=== PATIENT | male | born 1950 | race Caucasian/White ===

== ENCOUNTER 2020-12-24 11:21 | Inpatient (IN) | payer MEDICARE, OTHER ==
[2020-12-24 16:07] VITALS: BP 92/56
--- NOTE | 2020-12-24 16:15 | NUR ---
Received pt from [facility] via [facility]. Upon arriving on the floor, pt was unarousable to both verbal and painful stimuli. Blood pressure 71/44, O2 saturation 93% on 2 L NC, SR on monitor, rate of 81, temp 98.3. Rapid response called, BOARD LINING MACHINE OPERATOR Violetta Dc came, pt started on NS bolus and Narcan 0.4 mg IV push given.
--- NOTE | 2020-12-24 16:45 | NUR ---
ARU admission process unable to be completed due to patient's condition. Pt to be transfered to telemetry unit pre HABITAT BIOLOGIST Violetta Dc.
--- NOTE | 2020-12-24 16:45 | NUR ---
Pt awakened but subsequently back to deep sleep. BP went up to 96/51, heart rate 86. BURN OUT SCARFING OPERATOR Violetta Dc on unit and aware. Pt to be transferred to telemetry unit for higher level of care.
[2020-12-24] MEDS ORDERED: NALOXONE HCL 0.4 MG/ML AMPUL IV STA (16:49)
[2020-12-24] MEDS ORDERED: IV NS 1000 ML 1,000 ML IV ONE (17:00)
[2020-12-25] MEDS ORDERED: ACET-2154 PO (09:12)
[2020-12-25] MEDS ORDERED: LISI10TA29 PO (09:15)
[2020-12-25] MEDS ORDERED: MAG30ORA PO (09:15)
[2020-12-25] MEDS ORDERED: ATOR20TA PO (09:15)
[2020-12-25] MEDS ORDERED: ENOX40DI SQ (09:15)
[2020-12-25] MEDS ORDERED: DOCU-141 PO (09:15)
[2020-12-25] MEDS ORDERED: MAGN400O6 PO (09:20)
[2020-12-25] MEDS ORDERED: ONDA4TAB5 PO (09:22)
[2020-12-25] MEDS ORDERED: METF-440 PO (09:22)
[2020-12-25] MEDS ORDERED: TAMS-3 PO (09:23)
[2020-12-25] MEDS ORDERED: PANT40TA2 PO (09:23)
[2020-12-25] MEDS ORDERED: GLIP5TAB13 PO (09:24)
== END 2020-12-24 17:30 | disposition short-term general hospital (02) | DRG 949 ==
PROVIDERS: ADMIT Nurse Practitioner Acute Care; ATTEND Physical Medicine & Rehabilitation Pain Medicine
DX: T84.021D Dislocation of internal left hip prosthesis, subsequent encounter (principal); J96.01 Acute respiratory failure with hypoxia; E11.9 Type 2 diabetes mellitus without complications; E78.5 Hyperlipidemia, unspecified; G89.4 Chronic pain syndrome; F17.210 Nicotine dependence, cigarettes, uncomplicated; J44.9 Chronic obstructive pulmonary disease, unspecified; I10 Essential (primary) hypertension; M85.80 Other specified disorders of bone density and structure, unspecified site; N40.0 Benign prostatic hyperplasia without lower urinary tract symptoms; Z96.643 Presence of artificial hip joint, bilateral; Z98.1 Arthrodesis status
CPT/HCPCS: J2310; J7030

== ENCOUNTER 2020-12-24 17:46 | Inpatient (IN) | payer MEDICARE, OTHER ==
[~2020-12-24] VITALS: Ht 177.8 cm; Wt 85.7 kg
--- NOTE | 2020-12-24 17:30 | NUR ---
received patient in bed, hob elevated. hard to arouse. on oxygen with simple mask at 5lpm. breathing is even and non labored. no sob noted. patient came from [facility] and admitted to [facility] for rehab. however, patient noted with low blood pressure upon admission and hard to arouse, in deep sleep. electronic operator blank villatoro came and saw pt, ordered to transfer to telemetry, noted and carried out.
[2020-12-24] MEDS ORDERED: ACETAMINOPHEN 325 MG TABLET PO PRN ×2 (18:00→18:45)
[2020-12-24] MEDS ORDERED: MAGNESIUM HYDROXIDE 30 ML LIQUID UDC PO PRN ×2 (18:00→18:45)
[2020-12-24] MEDS ORDERED: ENOXAPARIN SODIUM 40 MG/0.4 ML DISP.SYRIN SQ SCH ×2 (18:00→21:00)
[2020-12-24] MEDS ORDERED: OXYCODONE HCL 5 MG TABLET PO PRN (18:00)
[2020-12-24] MEDS ORDERED: Z GUARD REMEDY PASTE 57 GM TUBE TOP PRN (18:00)
[2020-12-24] MEDS ORDERED: ONDANSETRON 4 MG/2 ML VIAL IV PRN ×2 (18:00→18:45)
[2020-12-24] MEDS ORDERED: IV NS 1000 ML 1,000 ML IV PRN (18:00)
[2020-12-24] MEDS ORDERED: NALOXONE HCL 0.4 MG/ML AMPUL IV PRN ×2 (18:00→18:45)
--- NOTE | 2020-12-24 18:15 | NUR ---
pt hard to arouse again, BP 82/49, 95% sat on 2l/nc, informed TREATING PLANT PUMPER Violetta Dc- Narcan 4mg ivp given as ordered PRN, more awake after 5 minutes, BP 102/55 HR-80 sat at 96% , follows commands and knows his full name, and birthday but not birthdate, will continue to monitor
[2020-12-24] MEDS ORDERED: DEXTROSE 50% 50 ML DISP.SYRIN IV PRN ×3 (18:30→18:45)
[2020-12-24] MEDS ORDERED: HYDROCODONE/APAP 10-325 MG TABLET PO PRN (18:45)
[2020-12-24] MEDS ORDERED: MAG HYDROX/AL HYDROX/SIMETH 30 ML LIQUID UDC PO PRN (18:45)
[2020-12-24] MEDS ORDERED: MORPHINE SULFATE 4 MG/1 ML DISP.SYRIN IV PRN (18:45)
[2020-12-24] MEDS ORDERED: CYCLOBENZAPRINE HCL 10 MG TABLET PO PRN (18:45)
[2020-12-24] MEDS ORDERED: INSULIN REGULAR, HUMAN 300 UNITS/3 ML VIAL SQ PRN (18:45)
[2020-12-24] MEDS ORDERED: INSULIN REGULAR, HUMAN 300 UNIT/3 ML VIAL SQ PRN (18:45)
--- NOTE | 2020-12-24 18:55 | NUR ---
arousable, moves upper extremities when told to, states not hungry, BP 100/48 ID [id number] sat 97% at 2l/nc,, will continue to monitor
--- NOTE | 2020-12-24 19:15 | NUR ---
patient easy to arouse, alert and responsive. no sob noted. body check done and wound consult ordered. however, patient refused left hip dressing to be touched, saying it hurts too much. patient kept comfortable.call light within reach. will continue to monitor and endorse accordingly.
[2020-12-24 20:00] VITALS: BP 101/59
--- NOTE | 2020-12-24 20:00 | NUR ---
Received pt lying in bed, sleeping and very drowsy but arouse to verbal and tactile stimuli. Falls back to sleep right after arousal. In no acute distress. No signs or symptoms of pain or SOB. On O2 at 3LPM via NC in place. O2 sat at 96%. NSR on tele at 90/min.IV site on right hand intact and patent. Abductor pillow between legs. Safety measure initiated and call small within reach. Continue to monitor.
[2020-12-24] MEDS ORDERED: Z GUARD REMEDY PASTE 57 GM TUBE TOP SCH (21:00)
[2020-12-24] MEDS ORDERED: BLOOD SUGAR DIAGNOSTIC 1 EACH STRIP VI SCH ×2 (21:00)
[2020-12-24] MEDS ORDERED: ATORVASTATIN 20 MG TABLET PO SCH (21:00)
[2020-12-24] MEDS ORDERED: TRAZODONE 100 MG TABLET PO SCH (21:00)
[2020-12-24] MEDS ORDERED: DOCUSATE SODIUM 100 MG CAPSULE PO SCH (21:00)
[2020-12-24] MEDS ORDERED: TAMSULOSIN HCL 0.4 MG CAP.SR.24H PO SCH (21:00)
[2020-12-24] MEDS: IV NS 1000 ML 1,000 ML IV PRN (21:02)
[2020-12-24] MEDS ORDERED: OXYCODONE HCL 40 MG TAB.SR.12H PO SCH (22:00)
[2020-12-25] VITALS: BP 106/67
[2020-12-25] MEDS ORDERED: BLOOD SUGAR DIAGNOSTIC 1 EACH STRIP VI SCH
[2020-12-25] MEDS: BLOOD SUGAR DIAGNOSTIC 1 EACH STRIP VI SCH ×2 (00:17→05:32)
[2020-12-25] MEDS: INSULIN REGULAR, HUMAN 300 UNIT/3 ML VIAL SQ PRN ×2 (00:19→05:33)
[2020-12-25 00:38] VITALS: BP 106/67
[2020-12-25] MEDS: IV NS 1000 ML 1,000 ML IV PRN (04:36)
[2020-12-25 04:47] VITALS: BP 107/66
--- NOTE | 2020-12-25 06:17 | NUR ---
patient more awake and alert now. AAOx4. In no acute distress. Tylenol 650mg PO given x1 for complain of pain and effective. On O2 at 3LPM via NC in place. O2 sat at 96%. NSR on tele at 81/min. IV site on right hand intact and patent. IVF infusing. Abductor pillow between legs. Needs attended to and met. Safety measure maintained and call small within reach.
[2020-12-25] MEDS ORDERED: PANTOPRAZOLE SODIUM 40 MG TABLET.DR PO SCH ×2 (07:00)
[2020-12-25] MEDS ORDERED: glipiZIDE 5 MG TABLET PO SCH (07:30)
[2020-12-25] MEDS ORDERED: METFORMIN HCL 500 MG TABLET PO SCH (08:00)
[2020-12-25] MEDS ORDERED: ALPRAZOLAM 0.5 MG TABLET PO SCH (09:00)
[2020-12-25] MEDS ORDERED: LISINOPRIL 10 MG TABLET PO SCH (09:00)
[2020-12-25] MEDS ORDERED: ACET-2154 PO (09:12)
[2020-12-25] MEDS ORDERED: ATOR20TA PO (09:15)
[2020-12-25] MEDS ORDERED: LISI10TA29 PO (09:15)
[2020-12-25] MEDS ORDERED: ENOX40DI SQ (09:15)
[2020-12-25] MEDS ORDERED: MAG30ORA PO (09:15)
[2020-12-25] MEDS ORDERED: DOCU-141 PO (09:15)
[2020-12-25] MEDS ORDERED: MAGN400O6 PO (09:20)
[2020-12-25] MEDS ORDERED: METF-440 PO (09:22)
[2020-12-25] MEDS ORDERED: ONDA4TAB5 PO (09:22)
[2020-12-25] MEDS ORDERED: TAMS-3 PO (09:23)
[2020-12-25] MEDS ORDERED: PANT40TA2 PO (09:23)
[2020-12-25] MEDS ORDERED: GLIP5TAB13 PO (09:24)
[2020-12-26 07:13] LABS: BASOPHILS % (AUTO) 0.8 % (0.0-2.0); EOSINOPHILS # (AUTO) 0.2 K/uL (0.0-0.7); EOSINOPHILS % (AUTO) 3.3 % (0.0-7.0); HEMATOCRIT 35.1 % (36.7-47.1); HEMOGLOBIN 12.6 g/dL (12.5-16.3); LYMPHOCYTES # (AUTO) 1.6 K/uL (20.0-40.0); LYMPHOCYTES % (AUTO) 23.9 % (20.5-51.5); MEAN CORPUSCULAR HEMOGLOBIN 33.3 uug (23.8-33.4); MEAN CORPUSCULAR HGB CONC 36 g/dL (32.5-36.3); MEAN CORPUSCULAR VOLUME 92.5 fL (73.0-96.2); MONOCYTES # (AUTO) 0.4 K/uL (2.0-10.0); MONOCYTES % (AUTO) 6.4 % (0.0-11.0); NEUTROPHILS # (AUTO) 4.3 K/uL (1.8-8.9); NEUTROPHILS % (AUTO) 65.6 % (38.5-71.5); PLATELET COUNT (AUTO) 123 K/uL (152-348); RED BLOOD CELL COUNT(AUTO) 3.79 MIL/uL (4.06-5.63); WHITE BLOOD COUNT (AUTO) 6.5 K/uL (3.6-10.2)
[2020-12-26 07:22] LABS: MAGNESIUM 1.8 mg/dL (1.8-2.4); PHOSPHOROUS 3.1 mg/dL (2.5-4.9)
[2020-12-26 07:44] LABS: THYROID STIMULATING HORMONE 0.765 mIU/mL (0.358-3.740)
== END 2020-12-25 08:00 | DRG 189 ==
LOC: TELE3 17:46 → TELE-TD3 19:28 → UNDODISIN 12-25 08:08
PROVIDERS: ADMIT Registered Nurse; ATTEND Registered Nurse
DX: J96.01 Acute respiratory failure with hypoxia (principal); I95.2 Hypotension due to drugs; T40.605A Adverse effect of unspecified narcotics, initial encounter; Y92.89 Other specified places as the place of occurrence of the external cause; E11.9 Type 2 diabetes mellitus without complications; E78.5 Hyperlipidemia, unspecified; G89.4 Chronic pain syndrome; I10 Essential (primary) hypertension; J44.9 Chronic obstructive pulmonary disease, unspecified; T84.021D Dislocation of internal left hip prosthesis, subsequent encounter; N40.0 Benign prostatic hyperplasia without lower urinary tract symptoms; R53.1 Weakness
CPT/HCPCS: 36415; 83735; 84100; 84443; 85025; G0378; J1650; J1815; J2310; J7030

== ENCOUNTER 2020-12-25 08:15 | Inpatient (IN) | payer MEDICARE, OTHER ==
[~2020-12-25] VITALS: Ht 177.8 cm; Wt 81.6 kg
[2020-12-25 08:22] VITALS: BP 123/69
[2020-12-25] MEDS ORDERED: ACET-2154 PO (09:12)
[2020-12-25] MEDS ORDERED: DOCU-141 PO (09:15)
[2020-12-25] MEDS ORDERED: MAG30ORA PO (09:15)
[2020-12-25] MEDS ORDERED: ATOR20TA PO (09:15)
[2020-12-25] MEDS ORDERED: LISI10TA29 PO (09:15)
[2020-12-25] MEDS ORDERED: ENOX40DI SQ (09:15)
[2020-12-25] MEDS ORDERED: MAGN400O6 PO (09:20)
[2020-12-25] MEDS ORDERED: METF-440 PO (09:22)
[2020-12-25] MEDS ORDERED: ONDA4TAB5 PO (09:22)
[2020-12-25] MEDS ORDERED: PANT40TA2 PO (09:23)
[2020-12-25] MEDS ORDERED: TAMS-3 PO (09:23)
[2020-12-25] MEDS ORDERED: GLIP5TAB13 PO (09:24)
--- NOTE | 2020-12-25 10:00 | NUR ---
patient is alert, oriented x3, with some forgetfulness, no sob, resp even nonlabored, skin warm and dry to touch, left hip ORIF, incision site is clean and dry, renetta are intact, noted with some blanchable redness to sacral area, no distress noted.
--- NOTE | 2020-12-25 11:30 | NUR ---
Violetta GRIMM would like to transfer the patient back to [facility] for more monitoring
--- NOTE | 2020-12-25 12:14 | NUR ---
discharge to [facility] cancelled per SIRISHA Shipley, patient is stable and can continue ARU
[2020-12-25] MEDS ORDERED: ACETAMINOPHEN 325 MG TABLET PO PRN (12:15)
[2020-12-25] MEDS ORDERED: MAG HYDROX/AL HYDROX/SIMETH 30 ML LIQUID UDC PO PRN (12:15)
[2020-12-25] MEDS ORDERED: ONDANSETRON HCL 4 MG TABLET PO SCH (12:15)
[2020-12-25] MEDS ORDERED: MAGNESIUM HYDROXIDE 30 ML LIQUID UDC PO PRN (12:15)
[2020-12-25] MEDS ORDERED: DEXTROSE 50% 50 ML DISP.SYRIN IV PRN (12:30)
[2020-12-25] MEDS: BLOOD SUGAR DIAGNOSTIC 1 EACH STRIP VI SCH ×3 (12:41→20:32)
[2020-12-25] MEDS: OXYCODONE HCL 5 MG TABLET PO PRN ×2 (12:41→20:43)
--- NOTE | 2020-12-25 12:41 | NUR ---
Patient blood sugar 136, refused insulin, patient stated this is normal for me, risks and benefits explained, patient verbalized understanding of it
[2020-12-25 15:31] VITALS: BP 142/85
[2020-12-25] MEDS: glipiZIDE 5 MG TABLET PO SCH (16:05)
--- NOTE | 2020-12-25 16:13 | NUR ---
patient blood sugar 139, refused insulin, patient also said he does not want his metformin either. risks and benefits explained, patient verbalized understanding of it.
[2020-12-25] MEDS ORDERED: glipiZIDE 5 MG TABLET PO SCH (17:00)
[2020-12-25] MEDS ORDERED: METFORMIN HCL 500 MG TABLET PO SCH (17:00)
[2020-12-25] MEDS: METFORMIN HCL 500 MG TABLET PO SCH (18:00)
--- NOTE | 2020-12-25 20:00 | NUR ---
Received patient lying in bed. AAOX4. In no acute distress. Denies any pain or SOB at this time. On RA. Iv site on right hand intact and patent. Abductor pillow between legs. Dressing on left hip dry and clean. Needs assessed and attended to. Safety measure initiated and call small within reached.
[2020-12-25 20:08] VITALS: BP 124/76
[2020-12-25] MEDS: ATORVASTATIN 20 MG TABLET PO SCH (20:25)
[2020-12-25] MEDS: INSULIN REGULAR, HUMAN 300 UNIT/3 ML VIAL SQ PRN (20:33)
[2020-12-25] MEDS: TAMSULOSIN HCL 0.4 MG CAP.SR.24H PO SCH (20:43)
[2020-12-25] MEDS: DOCUSATE SODIUM 100 MG CAPSULE PO SCH (20:43)
[2020-12-25] MEDS ORDERED: OXYCODONE HCL 20 MG TAB.SR.12H PO SCH (22:15)
[2020-12-25] MEDS ORDERED: NALOXONE HCL 0.4 MG/ML AMPUL IV PRN (22:15)
[2020-12-26] MEDS: CLONAZEPAM 1 MG TABLET PO PRN ×2 (00:36→12:01)
[2020-12-26] MEDS ORDERED: OXYCODONE HCL 5 MG TABLET PO PRN (00:45)
[2020-12-26 04:08] VITALS: BP 146/82
--- NOTE | 2020-12-26 06:00 | NUR ---
Slept well last night. Oxy IR given for complain of pain on left hip and effective. Denies SOB on RA. IV site on right hand remain intact and patent. Abductor pillow between legs. Dressing on left hip dry and clean. Needs attended to and met. Safety measure maintained and call small within reached.
[2020-12-26] MEDS: PANTOPRAZOLE SODIUM 40 MG TABLET.DR PO SCH (06:27)
[2020-12-26] MEDS: glipiZIDE 5 MG TABLET PO SCH ×2 (06:30→16:41)
[2020-12-26] MEDS: BLOOD SUGAR DIAGNOSTIC 1 EACH STRIP VI SCH ×3 (06:30→16:41)
[2020-12-26 07:05] LABS: CREATININE 0.7 mg/dL (0.6-1.3); POTASSIUM 4.1 mmol/L (3.5-5.1)
[2020-12-26] MEDS: INSULIN REGULAR, HUMAN 300 UNIT/3 ML VIAL SQ PRN ×3 (08:00→16:35)
[2020-12-26] MEDS: METFORMIN HCL 500 MG TABLET PO SCH ×2 (08:00→17:25)
[2020-12-26] MEDS: LISINOPRIL 10 MG TABLET PO SCH (08:10)
[2020-12-26] MEDS: ENOXAPARIN SODIUM 40 MG/0.4 ML DISP.SYRIN SQ SCH (09:51)
--- NOTE | 2020-12-26 11:34 | NUR ---
WOUND CARE CONSULT: PT UNCOOPERATIVE, WAVING FIST AND CURSING AT NURSING STAFF. PT IS INDEPENDENT WITH BED MOBILITY. PT NOTED TO HAVE MOISTURE ASSOCIATED SKIN DAMAGE TO GLUTEAL CREASE AND RT LOWER BUTTOCK, PRESENT ON ADMISSION. RECOMMENDATIONS MADE FOR SKIN PROTECTION. DISCUSSED WITH NURSING STAFF. IN AGREEMENT WITH PLAN OF CARE. Addendum: 12/26/20 at 1137 by ISMAEL AMADOR RN Amended: Links added.
[2020-12-26] MEDS ORDERED: NALOXONE HCL 0.4 MG/ML AMPUL IV PRN (15:00)
[2020-12-26 15:21] VITALS: BP 101/75
[2020-12-26 17:32] VITALS: BP 108/62
--- NOTE | 2020-12-26 19:00 | NUR ---
patient was very anxious in the morning,agitated, yelling in the loud voices, saying he wants to smoke, training director made aware, patient noted with poor safety awareness, ambulates without calling for assist, tries to reach the stuff unsafely, does not want to give his ciggeret and cotton header the nursing staff for safely reason, Klonopin administered as ordered, with some effectiveness. continue to monitor, no other distress noted, alert, awake, no sob. resp even nonlabored.
[2020-12-26 20:00] VITALS: BP 139/83
[2020-12-26] MEDS: TRAZODONE 100 MG TABLET PO SCH (20:29)
[2020-12-26] MEDS: DOCUSATE SODIUM 100 MG CAPSULE PO SCH (20:29)
[2020-12-26] MEDS: ATORVASTATIN 20 MG TABLET PO SCH (20:29)
[2020-12-26] MEDS: TAMSULOSIN HCL 0.4 MG CAP.SR.24H PO SCH (20:29)
[2020-12-26] MEDS: OXYCODONE HCL 40 MG TAB.SR.12H PO SCH (20:30)
[2020-12-26] MEDS: Z GUARD REMEDY PASTE 57 GM TUBE TOP SCH (21:15)
[2020-12-27] MEDS: BLOOD SUGAR DIAGNOSTIC 1 EACH STRIP VI SCH ×5 (00:13→21:00)
[2020-12-27] MEDS: INSULIN REGULAR, HUMAN 300 UNIT/3 ML VIAL SQ PRN ×4 (00:15→16:53)
[2020-12-27] MEDS: TEMAZEPAM 15 MG CAPSULE PO PRN ×2 (00:22→23:20)
[2020-12-27] MEDS: HYDROCODONE/APAP 10-325 MG TABLET PO PRN ×2 (00:22→11:20)
[2020-12-27 04:00] VITALS: BP 111/65
[2020-12-27] MEDS: PANTOPRAZOLE SODIUM 40 MG TABLET.DR PO SCH (06:19)
[2020-12-27] MEDS: glipiZIDE 5 MG TABLET PO SCH ×2 (06:19→16:46)
--- NOTE | 2020-12-27 06:41 | NUR ---
Shift End Report: Very needy, demanding, lack of patience. PRN pain medication was given once with effect. Kept insisting to go out and smoke. Explained reason why he can not go at this time again and again. All needs attended and met. Continue current rehab plan of care.
[2020-12-27 08:00] VITALS: BP 129/82
[2020-12-27] MEDS: METFORMIN HCL 500 MG TABLET PO SCH ×3 (08:37→17:49)
[2020-12-27] MEDS: OXYCODONE HCL 40 MG TAB.SR.12H PO SCH ×3 (08:38→23:21)
[2020-12-27] MEDS: NICOTINE 7 MG/24HR PATCH TD SCH (08:42)
[2020-12-27] MEDS ORDERED: DEXTROSE 50% 50 ML DISP.SYRIN IV PRN (08:45)
[2020-12-27] MEDS: ENOXAPARIN SODIUM 40 MG/0.4 ML DISP.SYRIN SQ SCH (08:48)
[2020-12-27] MEDS: LISINOPRIL 10 MG TABLET PO SCH (08:56)
[2020-12-27] MEDS: Z GUARD REMEDY PASTE 57 GM TUBE TOP SCH ×2 (08:56→20:55)
[2020-12-27] MEDS: CLONAZEPAM 1 MG TABLET PO PRN (11:26)
--- NOTE | 2020-12-27 13:02 | NUR ---
Patient in bed alert and oriented x 4, irritable and uncooperative , on room air. VS WNL. Complains pain in his left hip and back. Pain medication administered per MD order. Patient is irritable and uncooperative he wants to have medications through injection, MD notified and order for Oxycontin 40mg every 8 hours instead. All needs met promptly. Will continue to monitor.
[2020-12-27 19:14] VITALS: BP 99/58
--- NOTE | 2020-12-27 19:40 | NUR ---
Received patient in bed, enjoyed playing with his mobile phone, No s/s of pain/discomforts at this time. Safety measures and afll prevention maintained. Continue care as planned.
[2020-12-27] MEDS: DOCUSATE SODIUM 100 MG CAPSULE PO SCH (20:54)
[2020-12-27] MEDS: TRAZODONE 100 MG TABLET PO SCH (20:54)
[2020-12-27] MEDS: ATORVASTATIN 20 MG TABLET PO SCH (20:55)
[2020-12-27] MEDS: TAMSULOSIN HCL 0.4 MG CAP.SR.24H PO SCH (20:55)
[2020-12-27] MEDS: INSULIN REGULAR, HUMAN 300 UNITS/3 ML VIAL SQ PRN (21:06)
[2020-12-28 04:40] VITALS: BP 91/57
--- NOTE | 2020-12-28 05:44 | NUR ---
Shift End Report: Patient behaved the whole shift. No screaming, yelling, demanding, arguments, complaining. Seen up in wheelchair outside his door. Limited conversation with staff. No PRN pain medication requested. Continue current rehab plan of care.
[2020-12-28] MEDS: OXYCODONE HCL 40 MG TAB.SR.12H PO SCH ×3 (06:11→21:15)
[2020-12-28] MEDS: PANTOPRAZOLE SODIUM 40 MG TABLET.DR PO SCH (06:31)
[2020-12-28] MEDS: glipiZIDE 5 MG TABLET PO SCH ×2 (06:32→16:30)
[2020-12-28] MEDS: BLOOD SUGAR DIAGNOSTIC 1 EACH STRIP VI SCH ×4 (06:37→20:57)
[2020-12-28] MEDS: INSULIN REGULAR, HUMAN 300 UNIT/3 ML VIAL SQ PRN ×3 (07:24→21:02)
[2020-12-28 08:00] VITALS: BP 106/63
[2020-12-28] MEDS: LISINOPRIL 10 MG TABLET PO SCH (08:06)
[2020-12-28] MEDS: METFORMIN HCL 500 MG TABLET PO SCH ×2 (08:06→17:14)
[2020-12-28] MEDS: ENOXAPARIN SODIUM 40 MG/0.4 ML DISP.SYRIN SQ SCH (08:06)
[2020-12-28] MEDS: NICOTINE 7 MG/24HR PATCH TD SCH (08:06)
[2020-12-28] MEDS: Z GUARD REMEDY PASTE 57 GM TUBE TOP SCH ×2 (08:07→20:52)
--- NOTE | 2020-12-28 16:15 | NUR ---
INDIVIDUALIZED PLAN OF CARE
[2020-12-28 16:20] VITALS: BP 105/80
[2020-12-28 20:16] VITALS: BP 135/77
[2020-12-28] MEDS: ATORVASTATIN 20 MG TABLET PO SCH (20:50)
[2020-12-28] MEDS: TRAZODONE 100 MG TABLET PO SCH (20:51)
[2020-12-28] MEDS: DOCUSATE SODIUM 100 MG CAPSULE PO SCH (20:51)
[2020-12-28] MEDS: TAMSULOSIN HCL 0.4 MG CAP.SR.24H PO SCH ×2 (20:51→21:15)
[2020-12-28] MEDS: TEMAZEPAM 15 MG CAPSULE PO PRN (22:08)
[2020-12-29] MEDS: HYDROCODONE/APAP 10-325 MG TABLET PO PRN (00:35)
[2020-12-29 04:50] VITALS: BP 103/67
[2020-12-29] MEDS: OXYCODONE HCL 40 MG TAB.SR.12H PO SCH ×3 (05:00→21:30)
[2020-12-29] MEDS: glipiZIDE 5 MG TABLET PO SCH ×2 (06:54→17:07)
[2020-12-29] MEDS: BLOOD SUGAR DIAGNOSTIC 1 EACH STRIP VI SCH ×4 (06:59→21:50)
[2020-12-29] MEDS: PANTOPRAZOLE SODIUM 40 MG TABLET.DR PO SCH (07:00)
--- NOTE | 2020-12-29 07:05 | NUR ---
End of Shift Report: Patient was cooperative the entire shift. Patient is AOx4, on RA sating at 96%, ambulates with walker. All medications given as ordered and tolerated well. Patient c/o pain on left hip, gave as ordered and PRN pain medication. Patient slept intermittently. All needs attended to, safety precautions in place, call light within reach. Will endorse to the oncoming shift.
[2020-12-29 07:54] VITALS: BP 101/70
[2020-12-29] MEDS: METFORMIN HCL 500 MG TABLET PO SCH ×2 (08:00→17:36)
[2020-12-29] MEDS: LISINOPRIL 10 MG TABLET PO SCH (08:33)
[2020-12-29] MEDS: ENOXAPARIN SODIUM 40 MG/0.4 ML DISP.SYRIN SQ SCH (08:36)
[2020-12-29] MEDS: NICOTINE 7 MG/24HR PATCH TD SCH (09:00)
[2020-12-29] MEDS: Z GUARD REMEDY PASTE 57 GM TUBE TOP SCH ×2 (09:08→21:33)
[2020-12-29] MEDS: INSULIN REGULAR, HUMAN 300 UNIT/3 ML VIAL SQ PRN ×3 (09:55→21:37)
[2020-12-29] MEDS ORDERED: NICOTINE 7 MG/24HR PATCH TD PRN (13:30)
[2020-12-29 16:04] VITALS: BP 115/57
--- NOTE | 2020-12-29 18:30 | NUR ---
Patient is alert, oriented x 4, not in any form of distress, on room air. Patient refused metformin, explained risks and benefits but still refused. Violetta Dc INSPECTOR HE[employer] CARE FACILITIES in the unit during the shift, update given and informed regarding refusal of metformin and nicotine patch with no new order. Patient seen by Dr. Mazariegos and ordered to change Restoril to 30 mg PO Q HS.
[2020-12-29 20:37] VITALS: BP 126/76
[2020-12-29] MEDS: DOCUSATE SODIUM 100 MG CAPSULE PO SCH (21:00)
[2020-12-29] MEDS: ATORVASTATIN 20 MG TABLET PO SCH (21:30)
--- NOTE | 2020-12-29 21:30 | NUR ---
Received patient alert oriented x3, with some forgetfulness, at room air saturating 95% no sob, respiration even nonlabored, skin warm and dry to touch, left hip ORIF, incision site is clean and dry, patient ambulating with walker from his room to hallway with supervision of staff assisted back to his room, make him comfortable, routine pain medication with Due medication administered as ordered provide quite environment to asleep, Needs anticipated, safety precautions observed all time. Call light with in reach.
[2020-12-29] MEDS: TRAZODONE 100 MG TABLET PO SCH (21:31)
[2020-12-29] MEDS: TEMAZEPAM 15 MG CAPSULE PO SCH (21:49)
[2020-12-30 04:00] VITALS: BP 120/71
[2020-12-30] MEDS: HYDROCODONE/APAP 10-325 MG TABLET PO PRN (04:02)
--- NOTE | 2020-12-30 04:28 | NUR ---
Patient woke up with c/o of pain at his back on PS 8/10 assist with proper positing for resting in bed,administered PRN [place] 10/325 mg Q 8 hours as ordered. Encouraged fluids as tolerated. Needs anticipated. Will reassess for relief of pain, Continue with current plan of care.
[2020-12-30] MEDS: OXYCODONE HCL 40 MG TAB.SR.12H PO SCH ×3 (06:15→21:32)
[2020-12-30] MEDS: PANTOPRAZOLE SODIUM 40 MG TABLET.DR PO SCH (06:16)
[2020-12-30] MEDS: glipiZIDE 5 MG TABLET PO SCH ×2 (06:59→17:41)
[2020-12-30] MEDS: BLOOD SUGAR DIAGNOSTIC 1 EACH STRIP VI SCH ×4 (06:59→21:26)
[2020-12-30] MEDS: METFORMIN HCL 500 MG TABLET PO SCH ×2 (08:00→18:00)
[2020-12-30 08:35] VITALS: BP 129/74
[2020-12-30] MEDS: ENOXAPARIN SODIUM 40 MG/0.4 ML DISP.SYRIN SQ SCH (09:03)
[2020-12-30] MEDS: LISINOPRIL 10 MG TABLET PO SCH (09:03)
[2020-12-30] MEDS: INSULIN REGULAR, HUMAN 300 UNIT/3 ML VIAL SQ PRN ×2 (09:12→17:45)
[2020-12-30] MEDS: Z GUARD REMEDY PASTE 57 GM TUBE TOP SCH ×2 (09:12→21:23)
[2020-12-30 15:26] VITALS: BP 131/81
--- NOTE | 2020-12-30 20:00 | NUR ---
received pt screaming, yelling, demanding to go outside to spoke a cigarette. Spoke with charge nurse and according to her hospital policy does not allow pt to smoke at night. Explained to the pt, try to calm him down and walked him back to his room. All due medications administered and tolerated well. PRN [place] administered pt complaint of pain. Snacks proved. Dressing clean, dry and intact. Sacral wound care completed. Picture taken, placed in chart. Walking in hallway with wheel chair. Safety measures maintained. Pt has been very anxious throughout the night. Episodes of up and down. Will endorse to oncoming nurse. Continue plan of care.
[2020-12-30] MEDS: TAMSULOSIN HCL 0.4 MG CAP.SR.24H PO SCH (21:22)
[2020-12-30] MEDS: DOCUSATE SODIUM 100 MG CAPSULE PO SCH (21:22)
[2020-12-30] MEDS: TRAZODONE 100 MG TABLET PO SCH (21:22)
[2020-12-30] MEDS: TEMAZEPAM 15 MG CAPSULE PO SCH (21:23)
[2020-12-30] MEDS: ATORVASTATIN 20 MG TABLET PO SCH (21:23)
[2020-12-30 21:24] VITALS: BP 165/92
[2020-12-30] MEDS: INSULIN REGULAR, HUMAN 300 UNITS/3 ML VIAL SQ PRN (21:32)
[2020-12-31] MEDS: HYDROCODONE/APAP 10-325 MG TABLET PO PRN ×2 (00:33→08:59)
[2020-12-31 04:40] VITALS: BP 118/74
[2020-12-31] MEDS: OXYCODONE HCL 40 MG TAB.SR.12H PO SCH ×3 (05:18→21:48)
[2020-12-31] MEDS: PANTOPRAZOLE SODIUM 40 MG TABLET.DR PO SCH (06:12)
[2020-12-31] MEDS: glipiZIDE 5 MG TABLET PO SCH ×2 (06:12→16:22)
[2020-12-31] MEDS: BLOOD SUGAR DIAGNOSTIC 1 EACH STRIP VI SCH ×4 (06:18→21:42)
[2020-12-31 07:00] LABS: BASOPHILS % (AUTO) 0.9 % (0.0-2.0); EOSINOPHILS # (AUTO) 0.3 K/uL (0.0-0.7); EOSINOPHILS % (AUTO) 4.9 % (0.0-7.0); HEMATOCRIT 32.8 % (36.7-47.1); HEMOGLOBIN 11.5 g/dL (12.5-16.3); LYMPHOCYTES # (AUTO) 1.6 K/uL (20.0-40.0); LYMPHOCYTES % (AUTO) 30.7 % (20.5-51.5); MEAN CORPUSCULAR HGB CONC 35 g/dL (32.5-36.3); MEAN CORPUSCULAR VOLUME 94.1 fL (73.0-96.2); MONOCYTES # (AUTO) 0.6 K/uL (2.0-10.0); MONOCYTES % (AUTO) 11.1 % (0.0-11.0); NEUTROPHILS # (AUTO) 2.7 K/uL (1.8-8.9); NEUTROPHILS % (AUTO) 52.4 % (38.5-71.5); PLATELET COUNT (AUTO) 167 K/uL (152-348); RED BLOOD CELL COUNT(AUTO) 3.49 MIL/uL (4.06-5.63); WHITE BLOOD COUNT (AUTO) 5.1 K/uL (3.6-10.2)
[2020-12-31 07:22] LABS: CREATININE 0.8 mg/dL (0.6-1.3); POTASSIUM 3.9 mmol/L (3.5-5.1)
[2020-12-31 08:00] VITALS: BP 119/77
[2020-12-31] MEDS: INSULIN REGULAR, HUMAN 300 UNIT/3 ML VIAL SQ PRN ×3 (08:33→17:41)
[2020-12-31] MEDS: METFORMIN HCL 500 MG TABLET PO SCH ×2 (08:54→18:00)
[2020-12-31] MEDS: LISINOPRIL 10 MG TABLET PO SCH (08:58)
[2020-12-31] MEDS: ENOXAPARIN SODIUM 40 MG/0.4 ML DISP.SYRIN SQ SCH (09:01)
[2020-12-31] MEDS: Z GUARD REMEDY PASTE 57 GM TUBE TOP SCH ×2 (09:01→21:34)
--- NOTE | 2020-12-31 13:44 | NUR ---
INTERDISCIPLINARY TEAM CONFERENCE
[2020-12-31 16:00] VITALS: BP 105/73
[2020-12-31] MEDS: CLONAZEPAM 1 MG TABLET PO PRN (16:22)
--- NOTE | 2020-12-31 19:00 | NUR ---
EOSS: Pt in assigned room, A&Ox4, calm at this time. Able to verbalize needs throughout shift, needs met. Pt reported pain this AM, PRN [place] administered per order, no a/r noted. Due medications given per order, no a/r noted. Wound treatment administered per order. L hip dressing changed, C/D/I. L hip Xray today, see results in chart. Pt able to ambulate with FWW and assistance. Safety measures and fall precautions maintained. Call light and belongings within reach. Will endorse care to overnight caregiver nurse.
--- NOTE | 2020-12-31 19:50 | NUR ---
Received pt in bed, awake and verbally responsive. able to make needs known. Denies any pain or discomfort at this time. Insisted on going outside to smoke. Assisted back to his room and instructed on safety measures regarding smoking. Safety measures initiated, call light within reach, will continue to monitor.
[2020-12-31 20:00] VITALS: BP 127/80
[2020-12-31] MEDS: TAMSULOSIN HCL 0.4 MG CAP.SR.24H PO SCH (21:00)
[2020-12-31] MEDS: DOCUSATE SODIUM 100 MG CAPSULE PO SCH (21:00)
[2020-12-31] MEDS: ATORVASTATIN 20 MG TABLET PO SCH (21:00)
[2020-12-31] MEDS: TEMAZEPAM 15 MG CAPSULE PO SCH (21:33)
[2020-12-31] MEDS: TRAZODONE 100 MG TABLET PO SCH (21:34)
--- NOTE | 2020-12-31 21:35 | NUR ---
Pt refused 2100 medications Lipitor, Flomax, colace, Humulin R insulin qHS. Educated on the risks of not taking the medications, pt still refused. Will continue to monitor.
[2020-12-31] MEDS: INSULIN REGULAR, HUMAN 300 UNITS/3 ML VIAL SQ PRN (21:50)
[2021-01-01] MEDS: HYDROCODONE/APAP 10-325 MG TABLET PO PRN ×2 (03:50→16:48)
[2021-01-01 04:00] VITALS: BP 129/73
[2021-01-01] MEDS: OXYCODONE HCL 40 MG TAB.SR.12H PO SCH ×3 (06:27→21:15)
[2021-01-01] MEDS: glipiZIDE 5 MG TABLET PO SCH ×2 (06:34→16:48)
[2021-01-01] MEDS: PANTOPRAZOLE SODIUM 40 MG TABLET.DR PO SCH (06:34)
[2021-01-01] MEDS: BLOOD SUGAR DIAGNOSTIC 1 EACH STRIP VI SCH ×4 (06:34→20:41)
[2021-01-01 07:49] VITALS: BP 136/74
[2021-01-01] MEDS: METFORMIN HCL 500 MG TABLET PO SCH ×2 (08:00→17:14)
[2021-01-01] MEDS: ENOXAPARIN SODIUM 40 MG/0.4 ML DISP.SYRIN SQ SCH (08:30)
[2021-01-01] MEDS: LISINOPRIL 10 MG TABLET PO SCH (08:30)
[2021-01-01] MEDS: Z GUARD REMEDY PASTE 57 GM TUBE TOP SCH ×2 (08:31→20:33)
--- NOTE | 2021-01-01 11:31 | NUR ---
Patient refused insulin, blood sugar is 148, no signs and symptom of hyperglyemia or hypoglycemia noted, risks and benefits explained, patient still refused. patient verbalized understanding of it
[2021-01-01 16:06] VITALS: BP 115/73
--- NOTE | 2021-01-01 16:23 | NUR ---
patent blood sugar 144, refused insulin, risks and benefits explained, patient verbalized understanding of it
--- NOTE | 2021-01-01 19:09 | NUR ---
patient is sitting in chair, next to elevator, endorsed to next shift
[2021-01-01 20:06] VITALS: BP 123/61
[2021-01-01] MEDS: DOCUSATE SODIUM 100 MG CAPSULE PO SCH (20:32)
[2021-01-01] MEDS: TRAZODONE 100 MG TABLET PO SCH (20:33)
[2021-01-01] MEDS: TEMAZEPAM 15 MG CAPSULE PO SCH (20:33)
[2021-01-01] MEDS: TAMSULOSIN HCL 0.4 MG CAP.SR.24H PO SCH (20:33)
[2021-01-01] MEDS: ATORVASTATIN 20 MG TABLET PO SCH (20:33)
[2021-01-02 04:00] VITALS: BP 119/78
[2021-01-02] MEDS: OXYCODONE HCL 40 MG TAB.SR.12H PO SCH ×3 (06:03→21:22)
[2021-01-02] MEDS: glipiZIDE 5 MG TABLET PO SCH ×2 (06:22→16:22)
[2021-01-02] MEDS: PANTOPRAZOLE SODIUM 40 MG TABLET.DR PO SCH ×2 (06:22→07:00)
[2021-01-02] MEDS: BLOOD SUGAR DIAGNOSTIC 1 EACH STRIP VI SCH ×4 (06:25→20:24)
--- NOTE | 2021-01-02 06:39 | NUR ---
Shift End Report: VS stable. Patient very needy, demanding and verbally abusive. Repeatedly demands to go smoke, that we are violating his right. Explained to patient the hospital rules and policies but refused to listen. Charge nurse made aware. Close monitoring rendered. Continue current rehab plan of care.
[2021-01-02 07:44] VITALS: BP 106/65
[2021-01-02] MEDS: METFORMIN HCL 500 MG TABLET PO SCH ×2 (08:00→17:30)
[2021-01-02] MEDS: ENOXAPARIN SODIUM 40 MG/0.4 ML DISP.SYRIN SQ SCH (09:00)
[2021-01-02] MEDS: LISINOPRIL 10 MG TABLET PO SCH (09:21)
[2021-01-02] MEDS: Z GUARD REMEDY PASTE 57 GM TUBE TOP SCH ×2 (09:22→20:21)
[2021-01-02] MEDS: INSULIN REGULAR, HUMAN 300 UNIT/3 ML VIAL SQ PRN (11:52)
[2021-01-02 15:05] VITALS: BP 117/76
--- NOTE | 2021-01-02 19:16 | NUR ---
no distress noted, incision dry and clean
[2021-01-02] MEDS: TEMAZEPAM 15 MG CAPSULE PO SCH (20:20)
[2021-01-02] MEDS: DOCUSATE SODIUM 100 MG CAPSULE PO SCH ×2 (20:20→21:00)
[2021-01-02] MEDS: TRAZODONE 100 MG TABLET PO SCH (20:20)
[2021-01-02] MEDS: ATORVASTATIN 20 MG TABLET PO SCH ×2 (20:21→21:00)
[2021-01-02] MEDS: TAMSULOSIN HCL 0.4 MG CAP.SR.24H PO SCH ×2 (20:21→21:00)
[2021-01-02 20:26] VITALS: BP 105/63
[2021-01-02] MEDS: INSULIN REGULAR, HUMAN 300 UNITS/3 ML VIAL SQ PRN (20:52)
[2021-01-02] MEDS: CLONAZEPAM 1 MG TABLET PO PRN (23:34)
[2021-01-03] MEDS: HYDROCODONE/APAP 10-325 MG TABLET PO PRN ×2 (03:51→17:27)
[2021-01-03 04:00] VITALS: BP 125/72
[2021-01-03] MEDS: OXYCODONE HCL 40 MG TAB.SR.12H PO SCH ×3 (05:38→22:19)
[2021-01-03] MEDS: PANTOPRAZOLE SODIUM 40 MG TABLET.DR PO SCH (06:42)
[2021-01-03] MEDS: glipiZIDE 5 MG TABLET PO SCH ×2 (06:42→17:24)
[2021-01-03] MEDS: BLOOD SUGAR DIAGNOSTIC 1 EACH STRIP VI SCH ×4 (06:51→21:00)
[2021-01-03 07:14] LABS: CREATININE 0.8 mg/dL (0.6-1.3); POTASSIUM 4.8 mmol/L (3.5-5.1)
--- NOTE | 2021-01-03 07:15 | NUR ---
Shift End Report: slept good after taking his trazodone and Restoril. Up early ambulating in the [address] with FWW. All needs attended and met. No significant event reported all night. Continue current rehab plan of care.
[2021-01-03 07:29] LABS: BASOPHILS % (AUTO) 0.9 % (0.0-2.0); EOSINOPHILS # (AUTO) 0.3 K/uL (0.0-0.7); EOSINOPHILS % (AUTO) 6.9 % (0.0-7.0); HEMATOCRIT 34.5 % (36.7-47.1); HEMOGLOBIN 11.6 g/dL (12.5-16.3); LYMPHOCYTES # (AUTO) 1.4 K/uL (20.0-40.0); LYMPHOCYTES % (AUTO) 29.5 % (20.5-51.5); MEAN CORPUSCULAR HEMOGLOBIN 32.1 uug (23.8-33.4); MEAN CORPUSCULAR HGB CONC 34 g/dL (32.5-36.3); MEAN CORPUSCULAR VOLUME 95.2 fL (73.0-96.2); MONOCYTES # (AUTO) 0.6 K/uL (2.0-10.0); MONOCYTES % (AUTO) 12.8 % (0.0-11.0); NEUTROPHILS # (AUTO) 2.5 K/uL (1.8-8.9); NEUTROPHILS % (AUTO) 49.9 % (38.5-71.5); PLATELET COUNT (AUTO) 161 K/uL (152-348); RED BLOOD CELL COUNT(AUTO) 3.63 MIL/uL (4.06-5.63); WHITE BLOOD COUNT (AUTO) 4.9 K/uL (3.6-10.2)
[2021-01-03 08:00] VITALS: BP 113/71
[2021-01-03] MEDS: METFORMIN HCL 500 MG TABLET PO SCH ×2 (08:00→17:27)
[2021-01-03] MEDS: LISINOPRIL 10 MG TABLET PO SCH (08:23)
[2021-01-03] MEDS: ENOXAPARIN SODIUM 40 MG/0.4 ML DISP.SYRIN SQ SCH (08:26)
[2021-01-03] MEDS: Z GUARD REMEDY PASTE 57 GM TUBE TOP SCH ×2 (08:31→21:00)
--- NOTE | 2021-01-03 09:41 | NUR ---
Received patient walking in the hallway with a walker, assisted him back to his bedroom and remind him not to walk by himself for his safety. On frequent visual observation as patient walks in the hallway with his walker alone. Call light placed within reach. All needs met promptly. denies of any pain at this time. VS WNL. All due meds given per MD order. @0909 patient went off the unit for therapy. Will continue to monitor.
--- NOTE | 2021-01-03 11:36 | NUR ---
Dressing change done on his right buttocks with no redness noted and applied mepilex on the sacral area for skin maintenance. Patient refused HIS BLOOD SUGAR TO BE CHECK AT 1130am . Explain to the patient the importance of checking his blood sugar but patient was very uncooperative and started raising his voice and stated "YOU CAN CHECK IT LATER IN THE AFTERNOON"
[2021-01-03 16:04] VITALS: BP 119/73
[2021-01-03] MEDS: INSULIN REGULAR, HUMAN 300 UNIT/3 ML VIAL SQ PRN (17:48)
[2021-01-03 20:12] VITALS: BP 122/72
[2021-01-03] MEDS: DOCUSATE SODIUM 100 MG CAPSULE PO SCH (21:00)
[2021-01-03] MEDS: TAMSULOSIN HCL 0.4 MG CAP.SR.24H PO SCH (21:00)
[2021-01-03] MEDS: TRAZODONE 100 MG TABLET PO SCH (21:14)
[2021-01-03] MEDS: TEMAZEPAM 15 MG CAPSULE PO SCH (21:14)
[2021-01-03] MEDS: ATORVASTATIN 20 MG TABLET PO SCH (21:14)
[2021-01-03] MEDS: CLONAZEPAM 1 MG TABLET PO PRN (22:02)
--- NOTE | 2021-01-03 22:19 | NUR ---
Received pt resting in bed. AAO x4. No acute distress noted. Pt ambulated in the hallway using walker and safely back in bed. Pt noted to be demanding and uncooperative with plan of care and medications. Pt refused colace, flomax, z-guard, and accucheck. Pt also refused wound care. Risks and benefits explained. Offered x3, pt still refused. Safety measures maintained. Call light and personal items within reach. Will continue to monitor.
[2021-01-04] MEDS: HYDROCODONE/APAP 10-325 MG TABLET PO PRN ×2 (02:55→16:52)
[2021-01-04] MEDS: OXYCODONE HCL 40 MG TAB.SR.12H PO SCH ×3 (05:58→22:04)
[2021-01-04] MEDS: PANTOPRAZOLE SODIUM 40 MG TABLET.DR PO SCH (06:01)
[2021-01-04] MEDS: BLOOD SUGAR DIAGNOSTIC 1 EACH STRIP VI SCH ×4 (06:56→20:29)
[2021-01-04 08:00] VITALS: BP 113/62
[2021-01-04] MEDS: METFORMIN HCL 500 MG TABLET PO SCH ×2 (08:00→17:56)
[2021-01-04] MEDS: LISINOPRIL 10 MG TABLET PO SCH (08:05)
[2021-01-04] MEDS: glipiZIDE 5 MG TABLET PO SCH ×2 (08:06→16:30)
[2021-01-04] MEDS: ENOXAPARIN SODIUM 40 MG/0.4 ML DISP.SYRIN SQ SCH (08:07)
[2021-01-04] MEDS: Z GUARD REMEDY PASTE 57 GM TUBE TOP SCH ×2 (08:08→20:29)
--- NOTE | 2021-01-04 08:30 | NUR ---
Patient in bed alert and oriented x 4, denies of any pain at this time. Patient is demanding with regards to his food. Remind patient not to walk by himself and use a call light when needed but patient is very uncooperative. Refused Lovenox, metformin and z-guard and explained to the patient the benefits of taking these medications, patient raised his voice and refused.
--- NOTE | 2021-01-04 11:30 | NUR ---
Patient was escorted at the lobby to knot picker cloth clothes given by his friend. A pack of cigarette and 2 pieces of lighters were found in his possession. When asked to surrender the cigarette and lighters per hospital protocol patient became agitated and started yelling at the hallway. Patient surrender the 2 lighters but not the cigarette. Patient is very uncooperative and he was assisted back to his room and patient closed the door.
--- NOTE | 2021-01-04 12:04 | NUR ---
Erika from nursing office made aware of the situation.
--- NOTE | 2021-01-04 12:17 | NUR ---
Patient refused his blood sugar to be checked.
[2021-01-04 20:09] VITALS: BP 121/69
[2021-01-04] MEDS: TRAZODONE 100 MG TABLET PO SCH (20:28)
[2021-01-04] MEDS: TEMAZEPAM 15 MG CAPSULE PO SCH (20:28)
[2021-01-04] MEDS: DOCUSATE SODIUM 100 MG CAPSULE PO SCH (20:29)
[2021-01-04] MEDS: ATORVASTATIN 20 MG TABLET PO SCH (20:29)
[2021-01-04] MEDS: TAMSULOSIN HCL 0.4 MG CAP.SR.24H PO SCH (20:29)
[2021-01-04] MEDS: CLONAZEPAM 1 MG TABLET PO PRN (21:28)
--- NOTE | 2021-01-04 22:00 | NUR ---
Received pt ambulating in the hallway with walker. AAO x3-4. No acute distress noted. Pt demanding and uncooperative in plan of care. Refused most scheduled medications. Risks and benefits explained, offered x3, pt refused. Pt tends to be agitated when teaching and explanation are given. Encouraged pt not to ambulate alone and to call for help for safety. Safety measures maintained. Call light and personal items within use. Will continue to monitor.
[2021-01-05] MEDS: OXYCODONE HCL 40 MG TAB.SR.12H PO SCH ×3 (05:08→21:23)
[2021-01-05] MEDS: PANTOPRAZOLE SODIUM 40 MG TABLET.DR PO SCH (06:03)
[2021-01-05] MEDS: BLOOD SUGAR DIAGNOSTIC 1 EACH STRIP VI SCH ×4 (06:51→20:21)
[2021-01-05 06:56] LABS: BASOPHILS # (AUTO) 0.1 K/uL (0.0-8.0); BASOPHILS % (AUTO) 2.4 % (0.0-2.0); EOSINOPHILS # (AUTO) 0.4 K/uL (0.0-0.7); EOSINOPHILS % (AUTO) 6.4 % (0.0-7.0); HEMATOCRIT 36.2 % (36.7-47.1); HEMOGLOBIN 12.2 g/dL (12.5-16.3); LYMPHOCYTES # (AUTO) 1.4 K/uL (20.0-40.0); LYMPHOCYTES % (AUTO) 24.7 % (20.5-51.5); MEAN CORPUSCULAR HEMOGLOBIN 32.2 uug (23.8-33.4); MEAN CORPUSCULAR HGB CONC 34 g/dL (32.5-36.3); MEAN CORPUSCULAR VOLUME 95.8 fL (73.0-96.2); MONOCYTES # (AUTO) 0.6 K/uL (2.0-10.0); MONOCYTES % (AUTO) 10.3 % (0.0-11.0); NEUTROPHILS # (AUTO) 3.2 K/uL (1.8-8.9); NEUTROPHILS % (AUTO) 56.2 % (38.5-71.5); PLATELET COUNT (AUTO) 166 K/uL (152-348); RED BLOOD CELL COUNT(AUTO) 3.78 MIL/uL (4.06-5.63); WHITE BLOOD COUNT (AUTO) 5.6 K/uL (3.6-10.2)
[2021-01-05 07:06] LABS: CREATININE 0.9 mg/dL (0.6-1.3); POTASSIUM 4.4 mmol/L (3.5-5.1)
[2021-01-05 07:55] VITALS: BP 128/76
[2021-01-05] MEDS: METFORMIN HCL 500 MG TABLET PO SCH ×2 (08:00→17:10)
[2021-01-05] MEDS: ENOXAPARIN SODIUM 40 MG/0.4 ML DISP.SYRIN SQ SCH (09:05)
[2021-01-05] MEDS: glipiZIDE 5 MG TABLET PO SCH ×2 (09:07→16:59)
[2021-01-05] MEDS: LISINOPRIL 10 MG TABLET PO SCH (09:11)
[2021-01-05] MEDS: Z GUARD REMEDY PASTE 57 GM TUBE TOP SCH ×2 (09:12→20:27)
--- NOTE | 2021-01-05 12:16 | NUR ---
Patient decided to go home tomorrow and wants to see Dr. Giraldo. Patient was asking when to remove his renetta on his left hip. Dr. Giraldo notified and ordered to remove the renetta on his left hip now and stated that he will try to see the patient.
--- NOTE | 2021-01-05 13:21 | NUR ---
per Dr. Giraldo , leave the wound on the left hip open to air.
[2021-01-05 16:00] VITALS: BP 145/83
[2021-01-05] MEDS: HYDROCODONE/APAP 10-325 MG TABLET PO PRN (17:03)
[2021-01-05 20:08] VITALS: BP 115/81
[2021-01-05] MEDS: TEMAZEPAM 15 MG CAPSULE PO SCH (20:21)
[2021-01-05] MEDS: DOCUSATE SODIUM 100 MG CAPSULE PO SCH (20:21)
[2021-01-05] MEDS: ATORVASTATIN 20 MG TABLET PO SCH (20:21)
[2021-01-05] MEDS: TAMSULOSIN HCL 0.4 MG CAP.SR.24H PO SCH (20:21)
[2021-01-05] MEDS: TRAZODONE 100 MG TABLET PO SCH (20:21)
[2021-01-05] MEDS: INSULIN REGULAR, HUMAN 300 UNITS/3 ML VIAL SQ PRN (20:22)
[2021-01-05] MEDS: CLONAZEPAM 1 MG TABLET PO PRN (21:23)
[2021-01-06] MEDS: HYDROCODONE/APAP 10-325 MG TABLET PO PRN (00:48)
[2021-01-06 04:31] VITALS: BP 110/64
[2021-01-06] MEDS: PANTOPRAZOLE SODIUM 40 MG TABLET.DR PO SCH (06:00)
[2021-01-06] MEDS: OXYCODONE HCL 40 MG TAB.SR.12H PO SCH (06:00)
[2021-01-06] MEDS: BLOOD SUGAR DIAGNOSTIC 1 EACH STRIP VI SCH (06:36)
--- NOTE | 2021-01-06 07:30 | NUR ---
Received patient walking in the hallway without mask, patient teaching conducted on the importance of masks and one given to him. Patient can be combative. Patient is awake alert and oriented times 4. Patient has no IV access and is on room air. He ambulates with a front wheel walker. safety precautions are in place. Will continue to monitor.
[2021-01-06 08:00] VITALS: BP 116/75
[2021-01-06] MEDS: METFORMIN HCL 500 MG TABLET PO SCH (08:00)
[2021-01-06] MEDS: glipiZIDE 5 MG TABLET PO SCH (08:35)
[2021-01-06 08:37] VITALS: BP 116/75
[2021-01-06] MEDS: LISINOPRIL 10 MG TABLET PO SCH (08:37)
[2021-01-06] MEDS: ENOXAPARIN SODIUM 40 MG/0.4 ML DISP.SYRIN SQ SCH (08:42)
[2021-01-06] MEDS: Z GUARD REMEDY PASTE 57 GM TUBE TOP SCH (08:43)
--- NOTE | 2021-01-06 10:45 | NUR ---
Patient discharged to home with all his belongings and paperwork. All paperwork signed and copies given to patient. Patient picked up by friend Valerio in private vehicle. All medications given as ordered. ID band removed.
== END 2021-01-06 10:45 | disposition home or self-care (01) | DRG 950 ==
PROVIDERS: ADMIT Physical Medicine & Rehabilitation Pain Medicine; ATTEND Physical Medicine & Rehabilitation Pain Medicine
DX: T84.021D Dislocation of internal left hip prosthesis, subsequent encounter (principal); E11.9 Type 2 diabetes mellitus without complications; E78.5 Hyperlipidemia, unspecified; G89.4 Chronic pain syndrome; I10 Essential (primary) hypertension; J44.9 Chronic obstructive pulmonary disease, unspecified; F17.210 Nicotine dependence, cigarettes, uncomplicated; N40.0 Benign prostatic hyperplasia without lower urinary tract symptoms; Z96.643 Presence of artificial hip joint, bilateral; R53.1 Weakness; M85.80 Other specified disorders of bone density and structure, unspecified site; F43.10 Post-traumatic stress disorder, unspecified; Z98.1 Arthrodesis status; I95.2 Hypotension due to drugs; T40.605A Adverse effect of unspecified narcotics, initial encounter; M54.5 Low back pain; M54.2 Cervicalgia; Z88.0 Allergy status to penicillin
CPT/HCPCS: 36415; 73502; 85025; A9150; J1650; J1815

== ENCOUNTER 2021-10-19 22:04 | Inpatient (IN) | payer OTHER ==
[~2021-10-19] VITALS: Ht 175.3 cm; Wt 74.8 kg
[~2021-10-19 22:04] MED LIST: ACET-2154 PO; ATOR20TA PO; DOCU-141 PO; ENOX40DI SQ; GLIP5TAB13 PO; LISI10TA29 PO; MAG30ORA PO; MAGN400O6 PO; METF-440 PO; ONDA4TAB5 PO; PANT40TA2 PO; TAMS-3 PO
[2021-10-19] MEDS ORDERED: IV NORMAL SALINE 1000 ML BAG IV ONE (22:45)
[2021-10-19] MEDS ORDERED: ONDANSETRON 4 MG/2 ML VIAL IV ONE (22:45)
[2021-10-19] MEDS ORDERED: MORPHINE SULFATE 2 MG/1 ML DISP.SYRIN IV ONE (22:45)
[2021-10-19 23:17] LABS: HEMATOCRIT 39.9 % (36.7-47.1); MEAN CORPUSCULAR HEMOGLOBIN 32.3 uug (23.8-33.4); MEAN CORPUSCULAR VOLUME 92.2 fL (73.0-96.2); PLATELET COUNT (AUTO) 158 K/uL (152-348)
[2021-10-19 23:26] LABS: CREATININE 0.8 mg/dL (0.6-1.3); POTASSIUM 4.2 mmol/L (3.5-5.1)
[2021-10-19] MEDS ORDERED: MORPHINE SULFATE 4 MG/1 ML DISP.SYRIN ONE (23:28)
[2021-10-19] MEDS ORDERED: ONDANSETRON 4 MG/2 ML VIAL ONE (23:28)
[2021-10-19 23:39] LABS: BILIRUBIN,DIRECT 0.2 mg/dL (0.0-0.2); BILIRUBIN,TOTAL 0.7 mg/dL (0.2-1.0)
[2021-10-20] MEDS ORDERED: MORPHINE SULFATE 4 MG/1 ML DISP.SYRIN IV ONE (01:15)
[2021-10-20] MEDS ORDERED: MORPHINE SULFATE 4 MG/1 ML DISP.SYRIN ONE (01:33)
[2021-10-20] MEDS ORDERED: HYDROMORPHONE 1 MG/1 ML DISP.SYRIN IV ONE (02:30)
[2021-10-20] MEDS ORDERED: HYDROMORPHONE 1 MG/1 ML DISP.SYRIN ONE (02:59)
[2021-10-20 03:15] LABS: *BILIRUBIN,URIN NEGATIVE (NEGATIVE); *BLOOD, URINE 1+ (NEGATIVE); *CLARITY,URINE CLOUDY (CLEAR); *COLOR,URINE YELLOW (YELLOW); *KETONES,URINE NEGATIVE (NEGATIVE); *UROBILINOGEN,URINE 0.2 E.U./dl (NORMAL); LEUKOCYTE ESTERASE ,URINE 1+ (NEGATIVE); NITRITE, URINE POSITIVE (NEGATIVE); PH,URINE 7.5 (5.0-8.0); UGLUCOSE 2+ (NEGATIVE)
[2021-10-20 03:40] LABS: BACTERIA,URINE MANY /HPF (NONE SEEN); SQUAMOUS EPITHELIAL CELL,UR FEW /HPF (NONE SEEN); WBC,URINE 20-50 /HPF (0-3)
[2021-10-20] MEDS ORDERED: levoFLOXacin 750 MG/D5W 150 ML PIGGYBACK IV ONE (03:45)
[2021-10-20] MEDS ORDERED: levoFLOXacin 750MG/D5W 150 ML IV ONE (03:55)
[2021-10-20] MEDS ORDERED: OXYC60TA8 PO (05:26)
[2021-10-20] MEDS ORDERED: TRAZ-257 PO (05:26)
[2021-10-20] MEDS ORDERED: GLIP10TA11 PO ×2 (05:26→18:07)
[2021-10-20] MEDS ORDERED: ALPR1TAB7 PO (05:26)
[2021-10-20] MEDS ORDERED: PANT40TA2 PO (05:26)
[2021-10-20] MEDS ORDERED: TEMA30CA PO (05:26)
[2021-10-20] MEDS ORDERED: OXYCODONE/APAP 5-325 MG TABLET PO ONE (08:30)
[2021-10-20] MEDS ORDERED: OXYCODONE/APAP 5-325 MG TABLET ONE (08:37)
[2021-10-20] MEDS ORDERED: ONDANSETRON 4 MG/2 ML VIAL IV PRN (16:15)
[2021-10-20] MEDS ORDERED: MAGNESIUM HYDROXIDE 30 ML LIQUID UDC PO PRN (16:15)
[2021-10-20] MEDS ORDERED: ACETAMINOPHEN 325 MG TABLET PO PRN (16:15)
[2021-10-20] MEDS ORDERED: DEXTROSE 50% 50 ML DISP.SYRIN IV PRN (16:15)
[2021-10-20] MEDS ORDERED: Medication Not On Formulary EA (Alprazolam (Xanax) 1 MG) PO SCH (17:00)
[2021-10-20] MEDS ORDERED: OXYCODONE HCL 60 MG PO SCH (17:00)
[2021-10-20] MEDS: BLOOD SUGAR DIAGNOSTIC 1 EACH STRIP VI SCH ×2 (17:01→21:52)
[2021-10-20] MEDS: glipiZIDE 10 MG TABLET PO SCH (17:08)
[2021-10-20] MEDS ORDERED: LEVO500T90 PO (18:07)
[2021-10-20] MEDS ORDERED: ACET325T53 PO (18:07)
[2021-10-20] MEDS ORDERED: TRAZODONE 100 MG TABLET PO SCH (21:00)
[2021-10-20] MEDS ORDERED: DOCUSATE SODIUM 250 MG CAPSULE PO SCH (21:00)
[2021-10-20] MEDS ORDERED: TRAZODONE 50 MG TABLET ONE (21:54)
[2021-10-20] MEDS ORDERED: DOCUSATE SODIUM 100 MG CAPSULE PO ONE (21:54)
[2021-10-20] MEDS ORDERED: TRAZODONE 100 MG TABLET ONE (21:54)
[2021-10-20] MEDS ORDERED: INSULIN REGULAR, HUMAN 300 UNIT/3 ML VIAL ONE (22:03)
[2021-10-20] MEDS: INSULIN REGULAR, HUMAN 300 UNIT/3 ML VIAL SQ PRN (22:20)
[2021-10-21] MEDS ORDERED: IV NORMAL SALINE 1000 ML BAG IV ONE (06:15)
[2021-10-21] MEDS ORDERED: HYDROCODONE/APAP 10-325 MG TABLET PO ONE (06:15)
[2021-10-21 06:20] LABS: HEMATOCRIT 39.1 % (36.7-47.1); MEAN CORPUSCULAR HEMOGLOBIN 32.4 uug (23.8-33.4); MEAN CORPUSCULAR VOLUME 91.2 fL (73.0-96.2); PLATELET COUNT (AUTO) 150 K/uL (152-348)
[2021-10-21] MEDS ORDERED: HYDROCODONE/APAP 10-325 MG TABLET ONE (06:26)
[2021-10-21 07:09] LABS: BILIRUBIN,TOTAL 0.5 mg/dL (0.2-1.0); CREATININE 0.7 mg/dL (0.6-1.3); MAGNESIUM 1.8 mg/dL (1.8-2.4); PHOSPHOROUS 3.5 mg/dL (2.5-4.9); POTASSIUM 4.5 mmol/L (3.5-5.1); TOTAL PROTEIN, SERUM 9.2 g/dL (6.4-8.2)
[2021-10-21] MEDS ORDERED: PANTOPRAZOLE SODIUM 40 MG TABLET.DR PO ONE (07:55)
[2021-10-21] MEDS: glipiZIDE 10 MG TABLET PO SCH (08:30)
[2021-10-21] MEDS ORDERED: TEMAZEPAM 15 MG CAPSULE PO PRN (08:30)
[2021-10-21] MEDS: BLOOD SUGAR DIAGNOSTIC 1 EACH STRIP VI SCH ×2 (08:45→12:07)
[2021-10-21 08:58] LABS: THYROID STIMULATING HORMONE 0.638 mIU/mL (0.358-3.740)
[2021-10-21] MEDS ORDERED: PANTOPRAZOLE SODIUM 40 MG TABLET.DR PO SCH (09:00)
[2021-10-21] MEDS ORDERED: ENOXAPARIN SODIUM 40 MG/0.4 ML DISP.SYRIN SQ SCH (09:00)
[2021-10-21] MEDS ORDERED: ALPRAZOLAM 0.5 MG TABLET PO SCH (09:00)
[2021-10-21] MEDS ORDERED: ALPRAZOLAM 0.5 MG TABLET ONE (09:19)
[2021-10-21] MEDS ORDERED: ENOXAPARIN SODIUM 40 MG/0.4 ML DISP.SYRIN SQ ONE (09:19)
[2021-10-21] MEDS: INSULIN REGULAR, HUMAN 300 UNIT/3 ML VIAL SQ PRN (12:14)
[2021-10-21] MEDS ORDERED: INSULIN REGULAR, HUMAN 300 UNIT/3 ML VIAL ONE (12:17)
[2021-10-21] MEDS ORDERED: OXYCODONE HCL 20 MG TAB.SR.12H PO SCH (14:00)
[2021-10-21] MEDS ORDERED: OXYCODONE HCL 20 MG TAB.SR.12H PO ONE (14:17)
[2021-10-21] MEDS ORDERED: DOCUSATE SODIUM 100 MG CAPSULE PO SCH (21:00)
== END 2021-10-21 15:00 | DRG 637 ==
LOC: ER 22:06 → TRANSITION 10-21 08:20
PROVIDERS: ADMIT Internal Medicine; ATTEND Internal Medicine
DX: E11.65 Type 2 diabetes mellitus with hyperglycemia (principal); E43 Unspecified severe protein-calorie malnutrition; N39.0 Urinary tract infection, site not specified; D68.59 Other primary thrombophilia; E87.1 Hypo-osmolality and hyponatremia; M25.462 Effusion, left knee; F17.210 Nicotine dependence, cigarettes, uncomplicated; Z79.84 Long term (current) use of oral hypoglycemic drugs; Z96.653 Presence of artificial knee joint, bilateral; Z96.643 Presence of artificial hip joint, bilateral; Z20.822 Contact with and (suspected) exposure to COVID-19; B95.61 Methicillin susceptible Staphylococcus aureus infection as the cause of diseases classified elsewhere; M25.562 Pain in left knee; E78.5 Hyperlipidemia, unspecified; F32.A Depression, unspecified; F41.9 Anxiety disorder, unspecified; G89.4 Chronic pain syndrome; I10 Essential (primary) hypertension; M19.90 Unspecified osteoarthritis, unspecified site; N40.0 Benign prostatic hyperplasia without lower urinary tract symptoms; Z91.81 History of falling; Z79.899 Other long term (current) drug therapy; Z91.19 Patient's noncompliance with other medical treatment and regimen; K21.9 Gastro-esophageal reflux disease without esophagitis; J44.9 Chronic obstructive pulmonary disease, unspecified
CPT/HCPCS: 36415; 70030-TC; 71045; 83605; 83735; 84100; 84443; 85025; 85730; 87040; 87077; 87086; 93005; A4663; G0378; J1170; J1650; J1815; J1956; J2270; J2405; J7030

== ENCOUNTER 2023-01-20 14:58 | Emergency (ER) | payer MEDICARE, OTHER ==
[~2023-01-20] VITALS: Ht 177.8 cm; Wt 83.5 kg
[~2023-01-20 14:58] MED LIST changes: -ACET-2154 PO; +ACET325T53 PO; +ALPR1TAB7 PO; -ATOR20TA PO; -DOCU-141 PO; -ENOX40DI SQ; +GLIP10TA11 PO; -GLIP5TAB13 PO; +LEVO500T90 PO; -LISI10TA29 PO; -MAG30ORA PO; -MAGN400O6 PO; -METF-440 PO; -ONDA4TAB5 PO; +OXYC60TA8 PO; -TAMS-3 PO; +TEMA30CA PO; +TRAZ-257 PO
--- NOTE | 2023-01-20 15:45 | NUR ---
Gave report to RADHA Gamino at 's facility.
[2023-01-20] MEDS ORDERED: POVI37802 TP (16:06)
[2023-01-20] MEDS ORDERED: FLUT1BLS IH (16:06)
[2023-01-20] MEDS ORDERED: MULT-213 PO (16:06)
[2023-01-20] MEDS ORDERED: CYCL15CA23 PO (16:06)
[2023-01-20] MEDS ORDERED: SENN8.6T19 PO (16:06)
[2023-01-20] MEDS ORDERED: NALO4SPR BNOSTRILS (16:06)
[2023-01-20] MEDS ORDERED: POLY250017 PO (16:06)
[2023-01-20] MEDS ORDERED: MORP60TA34 PO (16:06)
[2023-01-20] MEDS ORDERED: DULA0.75 SQ (16:06)
[2023-01-20] MEDS ORDERED: L. A1TAB10 PO (16:06)
[2023-01-20] MEDS ORDERED: HYDR-3980 PO (16:06)
[2023-01-20] MEDS ORDERED: INSU100V39 SQ (16:06)
[2023-01-20] MEDS ORDERED: CALAZIME PASTE TP (16:06)
[2023-01-20] MEDS ORDERED: ASCO500C18 PO (16:06)
[2023-01-20] MEDS ORDERED: FOLI1TAB27 PO (16:06)
[2023-01-20] MEDS ORDERED: FERR325T28 PO (16:06)
--- NOTE | 2023-01-20 16:50 | NUR ---
Called [facility] for transport back to facility. ETA [id number]
--- NOTE | 2023-01-20 18:40 | NUR ---
Gave Ambulance crew report and d/c instructions. Pt transported
== END 2023-01-20 18:45 ==
LOC: ER 14:58
DX: Z00.00 Encounter for general adult medical examination without abnormal findings (principal); J44.9 Chronic obstructive pulmonary disease, unspecified; K21.9 Gastro-esophageal reflux disease without esophagitis; E11.9 Type 2 diabetes mellitus without complications; F17.210 Nicotine dependence, cigarettes, uncomplicated; Z88.0 Allergy status to penicillin; Z79.4 Long term (current) use of insulin; Z79.899 Other long term (current) drug therapy
CPT/HCPCS: A4663

== ENCOUNTER 2025-01-06 17:00 | Inpatient (IN) | payer MEDICARE, OTHER ==
[~2025-01-06] VITALS: Ht 182.9 cm; Wt 81.6 kg
[~2025-01-06 17:00] MED LIST changes: -ACET325T53 PO; +ASCO500C18 PO; +CALAZIME PASTE TP; +CYCL15CA23 PO; +DULA0.75 SQ; +FERR325T28 PO; +FLUT1BLS IH; +FOLI1TAB27 PO; -GLIP10TA11 PO; +HYDR-3980 PO; +INSU100V39 SQ; +L. A1TAB10 PO; -LEVO500T90 PO; +MORP60TA34 PO; +MULT-213 PO; +NALO4SPR BNOSTRILS; -OXYC60TA8 PO; +POLY250017 PO; +POVI37802 TP; +SENN8.6T19 PO
[2025-01-06 17:35] LABS: BASOPHILS % (AUTO) 0.5 % (0.0-2.0); EOSINOPHILS # (AUTO) 0.1 K/uL (0.0-0.7); EOSINOPHILS % (AUTO) 1.6 % (0.0-7.0); HEMATOCRIT 37.5 % (36.7-47.1); LYMPHOCYTES # (AUTO) 1.3 K/uL (0.8-4.8); LYMPHOCYTES % (AUTO) 15.3 % (20.5-51.5); MEAN CORPUSCULAR HEMOGLOBIN 32.4 uug (23.8-33.4); MEAN CORPUSCULAR HGB CONC 35 g/dL (32.5-36.3); MEAN CORPUSCULAR VOLUME 93.7 fL (73.0-96.2); MONOCYTES # (AUTO) 0.7 K/uL (0.1-1.30); MONOCYTES % (AUTO) 7.9 % (0.0-11.0); NEUTROPHILS # (AUTO) 6.3 K/uL (1.8-8.9); NEUTROPHILS % (AUTO) 74.7 % (38.5-71.5); PLATELET COUNT (AUTO) 81 K/uL (152-348); RED CELL DISTRIBUTION WIDTH 14.1 % (12.1-16.2); WHITE BLOOD COUNT (AUTO) 8.4 K/uL (3.6-10.2)
[2025-01-06] MEDS ORDERED: DEXAMETHASONE SOD PHOSPHATE 10 MG INJ ONE (17:35)
[2025-01-06] MEDS: AZITHROMYCIN 250 MG TABLET PO ONE (17:35)
[2025-01-06] MEDS: CEFTRIAXONE 2 G in IV DEXTROSE 5% 100 ML IV ONE (17:35)
[2025-01-06] MEDS: IV NORMAL SALINE 1000 ML BAG IV ONE (17:35)
[2025-01-06] MEDS ORDERED: AZITHROMYCIN 250 MG TABLET ONE (17:35)
[2025-01-06] MEDS ORDERED: CEFTRIAXONE /D5W 50ML IVPB **ER PYXIS IV ONE (17:35)
[2025-01-06 17:36] LABS: DIFFERENTIAL COMMENT 1
[2025-01-06] MEDS: DEXAMETHASONE SOD PHOSPHATE 4 MG INJ IV ONE (17:36)
[2025-01-06 17:39] LABS: CALCIUM 8.4 mg/dL (8.5-10.1); CARBON DIOXIDE 34 mmol/L (21-32); CHLORIDE 104 mmol/L (98-107); CREATININE 0.6 mg/dL (0.6-1.3); GLUCOSE 110 mg/dL (74-106); POTASSIUM 4.2 mmol/L (3.5-5.1); SODIUM SERUM 139 mmol/L (136-145); UREA NITROGEN, BLOOD 9 mg/dL (7-18)
[2025-01-06 17:51] LABS: ALANINE AMINOTRANSFERASE 35 U/L (16-63); ALBUMIN 2.5 g/dL (3.4-5.0); ALKALINE PHOSPHATASE 218 U/L (50-136); ASPARTATE AMINOTRANSFERASE 39 U/L (15-37); BILIRUBIN,DIRECT 0.3 mg/dL (0.0-0.2); BILIRUBIN,TOTAL 0.7 mg/dL (0.2-1.0); NT-PRO BNP 51 pg/mL (0-125); TOTAL PROTEIN, SERUM 8.5 g/dL (6.4-8.2)
[2025-01-06] MEDS ORDERED: GUAI-1189 PO (18:07)
[2025-01-06] MEDS ORDERED: FAMO-132 PO (18:07)
[2025-01-06] MEDS ORDERED: MOUNJARO 5 MG/0.5 ML SQ (18:07)
[2025-01-06] MEDS ORDERED: LISI-782 PO (18:07)
[2025-01-06] MEDS ORDERED: CHOL10005 PO (18:07)
[2025-01-06] MEDS ORDERED: ALPR1TAB2 PO (18:07)
[2025-01-06] MEDS ORDERED: PREG75CA PO (18:07)
[2025-01-06] MEDS ORDERED: SERT25TA PO (18:07)
[2025-01-06] MEDS ORDERED: LACT10SO58 PO (18:07)
[2025-01-06] MEDS ORDERED: ACET-3117 PO (18:07)
[2025-01-06] MEDS ORDERED: [UNRECOGNIZED DRUG - OTHER] TP (18:07)
[2025-01-06] MEDS ORDERED: GLIP5TAB13 PO (18:07)
[2025-01-06] MEDS ORDERED: ACET-2030 PO (18:07)
[2025-01-06] MEDS ORDERED: NALO25TA4 PO (18:07)
[2025-01-06] MEDS: CEFTRIAXONE 1 G in IV DEXTROSE 5% 50 ML IV SCH (18:15)
[2025-01-06] MEDS: AZITHROMYCIN IV 500 MG in IV DEXTROSE 5% 250 ML IV SCH (18:15)
[2025-01-06] MEDS ORDERED: MAGNESIUM HYDROXIDE 30 ML LIQUID UDC PO PRN (18:15)
[2025-01-06] MEDS ORDERED: REMEDY ESSENTIAL ZINC PASTE 113 GM TP PRN (18:15)
[2025-01-06] MEDS: ENOXAPARIN SODIUM 40 MG/0.4 ML DISP.SYRIN SQ SCH (18:37)
[2025-01-06] MEDS ORDERED: ACETAMINOPHEN 325 MG TABLET ONE (20:47)
[2025-01-06] MEDS: ACETAMINOPHEN 325 MG TABLET PO PRN (21:09)
[2025-01-06 21:50] LABS: *BILIRUBIN,URIN NEGATIVE (NEGATIVE); *BLOOD, URINE NEGATIVE (NEGATIVE); *CLARITY,URINE CLEAR (CLEAR); *COLOR,URINE YELLOW (YELLOW); *KETONES,URINE NEGATIVE (NEGATIVE); *PROTEIN,URINE NEGATIVE (NEGATIVE); *UROBILINOGEN,URINE 0.2 E.U./dl (NORMAL); LEUKOCYTE ESTERASE ,URINE NEGATIVE (NEGATIVE); NITRITE, URINE NEGATIVE (NEGATIVE); PH,URINE 5.5 (5.0-8.0); UGLUCOSE NEGATIVE (NEGATIVE)
[2025-01-06] MEDS: methylPREDNISolone SOD SUCC 40 MG/ML VIAL IV SCH (22:56)
[2025-01-06] MEDS: HYDROCODONE/APAP 10-325 MG TABLET PO PRN (22:57)
[2025-01-07] VITALS (9 sets, daily range): BP systolic 133–154; BP diastolic 64–94; TEMP 97–98.7; O2SAT 94–99
[2025-01-07 06:35] LABS: BASOPHILS % (AUTO) 0.5 % (0.0-2.0); EOSINOPHILS % (AUTO) 0.1 % (0.0-7.0); HEMATOCRIT 37.2 % (36.7-47.1); HEMOGLOBIN 13.1 g/dL (12.5-16.3); LYMPHOCYTES # (AUTO) 0.5 K/uL (0.8-4.8); LYMPHOCYTES % (AUTO) 11.7 % (20.5-51.5); MEAN CORPUSCULAR HEMOGLOBIN 32.7 uug (23.8-33.4); MEAN CORPUSCULAR HGB CONC 35 g/dL (32.5-36.3); MEAN CORPUSCULAR VOLUME 92.8 fL (73.0-96.2); MONOCYTES # (AUTO) 0.1 K/uL (0.1-1.30); MONOCYTES % (AUTO) 2.3 % (0.0-11.0); NEUTROPHILS # (AUTO) 3.7 K/uL (1.8-8.9); NEUTROPHILS % (AUTO) 85.4 % (38.5-71.5); RED CELL DISTRIBUTION WIDTH 13.9 % (12.1-16.2); WHITE BLOOD COUNT (AUTO) 4.3 K/uL (3.6-10.2)
[2025-01-07 06:51] LABS: CALCIUM 7.9 mg/dL (8.5-10.1); CARBON DIOXIDE 27 mmol/L (21-32); CHLORIDE 101 mmol/L (98-107); CREATININE 0.8 mg/dL (0.6-1.3); GLUCOSE 308 mg/dL (74-106); MAGNESIUM 1.7 mg/dL (1.8-2.4); PHOSPHOROUS 2.7 mg/dL (2.5-4.9); POTASSIUM 4.7 mmol/L (3.5-5.1); SODIUM SERUM 135 mmol/L (136-145); UREA NITROGEN, BLOOD 16 mg/dL (7-18)
[2025-01-07 06:56] LABS: DIFFERENTIAL COMMENT 1
[2025-01-07] MEDS: PANTOPRAZOLE SODIUM 40 MG VIAL IV SCH (08:27)
[2025-01-07] MEDS ORDERED: CHOL-35 PO (09:43)
[2025-01-07] MEDS ORDERED: ASCO-375 PO (09:43)
[2025-01-07] MEDS ORDERED: NALO4SPR NS (09:43)
[2025-01-07] MEDS ORDERED: CYCL5TAB PO (09:43)
[2025-01-07] MEDS ORDERED: AMIN30LI2 PO (09:43)
[2025-01-07 10:03] LABS: LYMPHOCYTES % (MANUAL) 12 % (20-40); NEUTROPHILS % (MANUAL) 85 % (42-75); PLATELET COUNT (AUTO) 54 K/uL (152-348)
[2025-01-07 10:04] LABS: EOSINOPHILS % (MANUAL) 1 % (0-8); MONOCYTES % (MANUAL) 2 % (2-10); PLATELET ESTIMATE DECREASED
[2025-01-07] MEDS: GUAIFENESIN/DEXTROMETHORPHAN 5 ML UDC PO PRN (10:24)
[2025-01-07] MEDS: MAGNESIUM OXIDE 400 MG TABLET PO ONE (10:36)
[2025-01-07] MEDS: IPRATROPIUM BROMIDE 0.5 MG/2.5 ML NEBU NEB PRN (10:42)
[2025-01-07] MEDS: ALBUTEROL SULFATE 2.5 MG/3 ML NEBU NEB PRN (10:42)
[2025-01-07] MEDS ORDERED: Medication Not On Formulary EA (Sertraline Hcl (Zoloft) 1 TAB) PO SCH (11:00)
[2025-01-07] MEDS ORDERED: Medication Not On Formulary EA (Cyclobenzaprine Hcl 5 MG) PO PRN (11:00)
[2025-01-07] MEDS ORDERED: NALOXEGOL OXALATE PO SCH (11:00)
[2025-01-07] MEDS ORDERED: NALOXONE NASAL SPRAY 4 MG SPRAY NS PRN (11:00)
[2025-01-07] MEDS ORDERED: Medication Not On Formulary EA (Multivitamins W-Minerals (Multivitamin With Minerals) 1 PO SCH (11:00)
[2025-01-07] MEDS ORDERED: Medication Not On Formulary EA (Lactulose 30 ML) PO SCH (11:00)
[2025-01-07] MEDS ORDERED: Medication Not On Formulary EA (Amino Acids/Protein Hydrolys (Pro-Stat Liquid) 30 ML) PO SCH (11:00)
[2025-01-07] MEDS ORDERED: Medication Not On Formulary EA (Pregabalin (Lyrica) 75 MG) PO SCH (11:00)
[2025-01-07] MEDS ORDERED: ACETAMINOPHEN ES 500 MG TABLET- SA PATIENTS-PAIN ONLY PO PRN (11:00)
[2025-01-07] MEDS ORDERED: ACETAMINOPHEN 500 MG TABLET PO PRN (11:15)
[2025-01-07] MEDS: LACTULOSE 20 G/30 ML LIQUID UDC PO SCH (12:03)
[2025-01-07] MEDS: MULTIVIT, IRON, MIN NO. 8, FA TABLET PO SCH (12:04)
[2025-01-07] MEDS: glipiZIDE 5 MG TABLET PO SCH (12:04)
[2025-01-07] MEDS: LISINOPRIL 5 MG TABLET PO SCH (12:04)
[2025-01-07] MEDS: ASCORBIC ACID 500 MG TABLET PO SCH (12:04)
[2025-01-07] MEDS: PREGABALIN 25 MG CAPSULE PO SCH (12:04)
[2025-01-07] MEDS: CHOLECALCIFEROL 1,000 UNIT TABLET PO SCH (12:05)
[2025-01-07] MEDS: MORPHINE SULFATE 2 MG/1 ML DISP.SYRIN IV PRN (12:16)
[2025-01-07] MEDS: SERTRALINE HCL 50 MG TABLET PO SCH (12:20)
[2025-01-07] MEDS: ALPRAZOLAM 0.5 MG TABLET PO SCH (12:43)
[2025-01-07] MEDS: PROTEIN SUPPLEMENT (PROSTAT) 30 ML LIQUID PO SCH (14:26)
[2025-01-07] MEDS: CEFTRIAXONE 1 G in IV DEXTROSE 5% 50 ML IV SCH (17:18)
[2025-01-07] MEDS: AZITHROMYCIN IV 500 MG in IV DEXTROSE 5% 250 ML IV SCH (18:26)
[2025-01-07] MEDS: ONDANSETRON 4 MG/2 ML VIAL IV PRN (18:33)
[2025-01-07] MEDS: TRAZODONE 100 MG TABLET PO SCH (20:29)
[2025-01-07] MEDS: CYCLOBENZAPRINE HCL 10 MG TABLET PO PRN (23:35)
[2025-01-08] VITALS (10 sets, daily range): BP systolic 148–180; BP diastolic 84–95; TEMP 98.2–99.6; O2SAT 94–99
[2025-01-08] MEDS: PREGABALIN 25 MG CAPSULE PO SCH (13:15)
[2025-01-08] MEDS: IPRATROPIUM BROMIDE 0.5 MG/2.5 ML NEBU NEB SCH (13:30)
[2025-01-08] MEDS: ALBUTEROL SULFATE 2.5 MG/3 ML NEBU NEB SCH (13:30)
[2025-01-08] MEDS: AMMONIUM LACTATE 12% LOTION 225 GM BOTTLE TP SCH (16:52)
[2025-01-08] MEDS: MUPIROCIN 2% OINT 22 GM TUBE TP SCH (21:28)
[2025-01-09] VITALS (10 sets, daily range): BP systolic 144–153; BP diastolic 63–83; TEMP 97.8–99.4; O2SAT 94–99
[2025-01-09] MEDS: PANTOPRAZOLE SODIUM 40 MG TABLET.DR PO SCH (06:25)
[2025-01-09 07:02] LABS: BASOPHILS % (AUTO) 0.4 % (0.0-2.0); EOSINOPHILS % (AUTO) 0.1 % (0.0-7.0); HEMATOCRIT 38.8 % (36.7-47.1); HEMOGLOBIN 13.7 g/dL (12.5-16.3); LYMPHOCYTES # (AUTO) 1.2 K/uL (0.8-4.8); LYMPHOCYTES % (AUTO) 13.6 % (20.5-51.5); MEAN CORPUSCULAR HEMOGLOBIN 32.5 uug (23.8-33.4); MEAN CORPUSCULAR HGB CONC 35 g/dL (32.5-36.3); MEAN CORPUSCULAR VOLUME 92.1 fL (73.0-96.2); MONOCYTES # (AUTO) 0.7 K/uL (0.1-1.30); MONOCYTES % (AUTO) 7.6 % (0.0-11.0); NEUTROPHILS # (AUTO) 6.8 K/uL (1.8-8.9); NEUTROPHILS % (AUTO) 78.3 % (38.5-71.5); PLATELET COUNT (AUTO) 56 K/uL (152-348); RED BLOOD CELL COUNT(AUTO) 4.21 MIL/uL (4.06-5.63); RED CELL DISTRIBUTION WIDTH 13.8 % (12.1-16.2); WHITE BLOOD COUNT (AUTO) 8.7 K/uL (3.6-10.2)
[2025-01-09 07:11] LABS: CALCIUM 8.7 mg/dL (8.5-10.1); CARBON DIOXIDE 29 mmol/L (21-32); CHLORIDE 101 mmol/L (98-107); CREATININE 0.7 mg/dL (0.6-1.3); GLUCOSE 229 mg/dL (74-106); PHOSPHOROUS 2.5 mg/dL (2.5-4.9); POTASSIUM 4.3 mmol/L (3.5-5.1); SODIUM SERUM 135 mmol/L (136-145); UREA NITROGEN, BLOOD 13 mg/dL (7-18)
[2025-01-09 07:18] LABS: DIFFERENTIAL COMMENT 1
[2025-01-09 10:55] LABS: LYMPHOCYTES % (MANUAL) 14 % (20-40); MONOCYTES % (MANUAL) 8 % (2-10); NEUTROPHILS % (MANUAL) 78 % (42-75)
[2025-01-09 10:56] LABS: PLATELET ESTIMATE DECREASED
[2025-01-09] MEDS: TEMAZEPAM 15 MG CAPSULE PO PRN (22:28)
[2025-01-10] MEDS: methylPREDNISolone SOD SUCC 40 MG/ML VIAL IV SCH (02:14)
[2025-01-10 06:00] VITALS: BP 141/75; TEMP 98.3; O2SAT 98
[2025-01-10 06:48] LABS: BASOPHILS % (AUTO) 0.2 % (0.0-2.0); EOSINOPHILS % (AUTO) 0.1 % (0.0-7.0); HEMATOCRIT 41.6 % (36.7-47.1); HEMOGLOBIN 14.3 g/dL (12.5-16.3); LYMPHOCYTES # (AUTO) 0.4 K/uL (0.8-4.8); MEAN CORPUSCULAR HEMOGLOBIN 31.9 uug (23.8-33.4); MEAN CORPUSCULAR HGB CONC 34 g/dL (32.5-36.3); MEAN CORPUSCULAR VOLUME 92.6 fL (73.0-96.2); MONOCYTES # (AUTO) 0.2 K/uL (0.1-1.30); MONOCYTES % (AUTO) 4.4 % (0.0-11.0); NEUTROPHILS % (AUTO) 88.3 % (38.5-71.5); PLATELET COUNT (AUTO) 51 K/uL (152-348); RED BLOOD CELL COUNT(AUTO) 4.49 MIL/uL (4.06-5.63); RED CELL DISTRIBUTION WIDTH 13.9 % (12.1-16.2); WHITE BLOOD COUNT (AUTO) 5.7 K/uL (3.6-10.2)
[2025-01-10 07:04] LABS: CALCIUM 8.7 mg/dL (8.5-10.1); CARBON DIOXIDE 27 mmol/L (21-32); CHLORIDE 100 mmol/L (98-107); CREATININE 0.8 mg/dL (0.6-1.3); GLUCOSE 287 mg/dL (74-106); PHOSPHOROUS 2.9 mg/dL (2.5-4.9); POTASSIUM 4.4 mmol/L (3.5-5.1); SODIUM SERUM 135 mmol/L (136-145); UREA NITROGEN, BLOOD 15 mg/dL (7-18)
[2025-01-10 07:13] LABS: DIFFERENTIAL COMMENT 1
[2025-01-10 07:44] VITALS: BP 146/82; TEMP 98.2; O2SAT 97
[2025-01-10 11:15] VITALS: TEMP 97.7; O2SAT 94
[2025-01-10 11:40] LABS: HEMATOCRIT 41.3 % (36.7-47.1); HEMOGLOBIN 14.3 g/dL (12.5-16.3)
[2025-01-10 12:50] VITALS: O2SAT 98
[2025-01-10] MEDS ORDERED: PREGABALIN 25 MG CAPSULE PO SCH (13:00)
[2025-01-10] MEDS: PREGABALIN 100 MG CAPSULE PO SCH (14:15)
[2025-01-10 14:44] LABS: BASOPHILS % (AUTO) 0.3 % (0.0-2.0); EOSINOPHILS % (AUTO) 0.2 % (0.0-7.0); HEMATOCRIT 42.2 % (36.7-47.1); HEMOGLOBIN 14.4 g/dL (12.5-16.3); LYMPHOCYTES # (AUTO) 1.1 K/uL (0.8-4.8); LYMPHOCYTES % (AUTO) 10.7 % (20.5-51.5); MEAN CORPUSCULAR HEMOGLOBIN 31.6 uug (23.8-33.4); MEAN CORPUSCULAR HGB CONC 34 g/dL (32.5-36.3); MEAN CORPUSCULAR VOLUME 92.5 fL (73.0-96.2); MONOCYTES % (AUTO) 9.5 % (0.0-11.0); NEUTROPHILS # (AUTO) 8.4 K/uL (1.8-8.9); NEUTROPHILS % (AUTO) 79.3 % (38.5-71.5); PLATELET COUNT (AUTO) 63 K/uL (152-348); RED BLOOD CELL COUNT(AUTO) 4.56 MIL/uL (4.06-5.63); RED CELL DISTRIBUTION WIDTH 13.6 % (12.1-16.2); WHITE BLOOD COUNT (AUTO) 10.6 K/uL (3.6-10.2)
[2025-01-10 14:52] LABS: DIFFERENTIAL COMMENT 1
[2025-01-10 14:55] LABS: HIV-1 p24 ANTIGEN NON REACTIVE (NONREACTIVE); HIV-1/2 ANTIBODY NON REACTIVE (NONREACTIVE)
[2025-01-10 15:10] LABS: THYROID STIMULATING HORMONE 0.314 mIU/mL (0.358-3.740)
[2025-01-10] MEDS ORDERED: IOHEXOL 300MG/ML 100 ML INFUS..BTL ONE (15:11)
[2025-01-10] MEDS ORDERED: DEXTROSE 50% 50 ML DISP.SYRIN IV PRN (15:15)
[2025-01-10 16:00] LABS: LYMPHOCYTES % (MANUAL) 8 % (20-40); MONOCYTES % (MANUAL) 5 % (2-10); NEUTROPHILS % (MANUAL) 87 % (42-75)
[2025-01-10 16:01] LABS: ANISOCYTOSIS 1+; PLATELET ESTIMATE DECREASED; TEAR DROP CELLS OCC
[2025-01-10] MEDS: BLOOD SUGAR DIAGNOSTIC 1 EACH STRIP VI SCH (17:02)
[2025-01-10] MEDS: INSULIN REGULAR, HUMAN 1000 UNIT/10 ML VIAL SQ PRN (17:04)
[2025-01-10 19:21] VITALS: O2SAT 98
[2025-01-10 19:47] VITALS: BP 160/88; TEMP 97.8; O2SAT 93
[2025-01-10] MEDS: PANTOPRAZOLE SODIUM 40 MG VIAL IV SCH (22:15)
[2025-01-11] VITALS (9 sets, daily range): BP systolic 108–164; BP diastolic 61–99; TEMP 97.6–98.3; O2SAT 93–99
[2025-01-11 06:23] LABS: BASOPHILS % (AUTO) 0.4 % (0.0-2.0); EOSINOPHILS % (AUTO) 0.2 % (0.0-7.0); HEMATOCRIT 41.6 % (36.7-47.1); HEMOGLOBIN 14.8 g/dL (12.5-16.3); LYMPHOCYTES # (AUTO) 0.6 K/uL (0.8-4.8); LYMPHOCYTES % (AUTO) 8.9 % (20.5-51.5); MEAN CORPUSCULAR HEMOGLOBIN 32.6 uug (23.8-33.4); MEAN CORPUSCULAR HGB CONC 36 g/dL (32.5-36.3); MEAN CORPUSCULAR VOLUME 91.9 fL (73.0-96.2); MONOCYTES # (AUTO) 0.3 K/uL (0.1-1.30); MONOCYTES % (AUTO) 4.2 % (0.0-11.0); NEUTROPHILS # (AUTO) 6.2 K/uL (1.8-8.9); NEUTROPHILS % (AUTO) 86.3 % (38.5-71.5); PLATELET COUNT (AUTO) 60 K/uL (152-348); RED BLOOD CELL COUNT(AUTO) 4.52 MIL/uL (4.06-5.63); RED CELL DISTRIBUTION WIDTH 13.6 % (12.1-16.2); WHITE BLOOD COUNT (AUTO) 7.2 K/uL (3.6-10.2)
[2025-01-11 06:35] LABS: CARBON DIOXIDE 29 mmol/L (21-32); CHLORIDE 104 mmol/L (98-107); CREATININE 0.7 mg/dL (0.6-1.3); GLUCOSE 251 mg/dL (74-106); MAGNESIUM 2.1 mg/dL (1.8-2.4); POTASSIUM 4.7 mmol/L (3.5-5.1); SODIUM SERUM 139 mmol/L (136-145); UREA NITROGEN, BLOOD 21 mg/dL (7-18)
[2025-01-11 06:37] LABS: DIFFERENTIAL COMMENT 1
[2025-01-11 06:40] LABS: LYMPHOCYTES % (MANUAL) 9 % (20-40); MONOCYTES % (MANUAL) 4 % (2-10); NEUTROPHILS % (MANUAL) 86 % (42-75)
[2025-01-11 06:41] LABS: EOSINOPHILS % (MANUAL) 1 % (0-8); PLATELET ESTIMATE DECREASED
[2025-01-11] MEDS ORDERED: MIDAZOLAM HCL 2 MG/2 ML VIAL ONE (11:59)
[2025-01-11] MEDS ORDERED: PROPOFOL 200 MG/20 ML BOTTLE ONE (12:00)
[2025-01-11 14:07] LABS: *IMMUNOGLOBULIN G, SERUM 3366 mg/dL (603-1613); IMMUNOGLOBULIN A, SERUM 667 mg/dL (61-437); IMMUNOGLOBULIN M, SERUM 169 mg/dL (15-143)
[2025-01-12] VITALS (7 sets, daily range): BP systolic 100–136; BP diastolic 52–74; TEMP 97.8–98.7; O2SAT 93–96
[2025-01-12 01:07] LABS: CARBOHYDRATE ANTIGEN, 19-9 18 U/mL (0-35); CARCINOEMBRYONIC AG (CEA) 3.4 ng/mL (0.0-4.7); HEPATITIS B CORE AB, IgM Negative (Negative); HEPATITIS B CORE AB, TOTAL Negative (Negative); HEPATITIS B SURFACE AB, QUAL Non Reactive (.); HEPATITIS B SURFACE AG Negative (Negative); HEPATITIS C VIRUS ANTIBODY Reactive (Non Reactive)
[2025-01-12 03:11] LABS: FOLATE (FOLIC ACID), SERUM 8.5 ng/mL (>3.0)
[2025-01-12] MEDS: methylPREDNISolone SOD SUCC 40 MG/ML VIAL IV SCH (08:20)
[2025-01-12] MEDS ORDERED: PROP10TA10 PO (10:44)
[2025-01-12] MEDS ORDERED: PREG100C PO ×2 (10:44)
[2025-01-12] MEDS ORDERED: FAMO-132 PO (10:50)
[2025-01-12] MEDS: INSULIN REGULAR, HUMAN 1000 UNIT/10 ML VIAL SQ ONE ×3 (12:19→14:30)
[2025-01-12] MEDS: INSULIN GLARGINE,HUM 300 UNITS/3 ML CARTRIDGE SQ ONE (14:45)
[2025-01-12 14:57] LABS: ABG BASE EXCESS -0.9 mmol/L (-2.0-3.0); ABG HCO3 22.7 mmol/L (21.0-28.0); ABG PCO2 34.7 mmHg (35.0-48.0); ABG PH 7.434 (7.350-7.450); ABG PO2 71.9 mmHg (83.0-108.0); ABG SITE RIGHT RADIAL; ABG TOTAL HEMOGLOBIN 14.7 G/dL (13.5-17.5); AaDO2 95.1 mmHg; COHb 0.6 % (0.5-1.5); MetHb 0.2 % (0.0-1.5); O2Hb 93.8 % (94.0-98.0)
[2025-01-12 15:37] LABS: BASOPHILS % (AUTO) 0.4 % (0.0-2.0); EOSINOPHILS % (AUTO) 0.2 % (0.0-7.0); HEMATOCRIT 43.9 % (36.7-47.1); HEMOGLOBIN 14.8 g/dL (12.5-16.3); LYMPHOCYTES # (AUTO) 0.3 K/uL (0.8-4.8); LYMPHOCYTES % (AUTO) 7.3 % (20.5-51.5); MEAN CORPUSCULAR HEMOGLOBIN 31.7 uug (23.8-33.4); MEAN CORPUSCULAR HGB CONC 34 g/dL (32.5-36.3); MEAN CORPUSCULAR VOLUME 93.8 fL (73.0-96.2); MONOCYTES # (AUTO) 0.1 K/uL (0.1-1.30); MONOCYTES % (AUTO) 3.6 % (0.0-11.0); NEUTROPHILS # (AUTO) 3.6 K/uL (1.8-8.9); NEUTROPHILS % (AUTO) 88.5 % (38.5-71.5); PLATELET COUNT (AUTO) 50 K/uL (152-348); RED BLOOD CELL COUNT(AUTO) 4.68 MIL/uL (4.06-5.63); RED CELL DISTRIBUTION WIDTH 13.8 % (12.1-16.2); WHITE BLOOD COUNT (AUTO) 4.1 K/uL (3.6-10.2)
[2025-01-12 15:38] LABS: DIFFERENTIAL COMMENT 1
[2025-01-12 16:03] LABS: CALCIUM 8.6 mg/dL (8.5-10.1); CARBON DIOXIDE 24 mmol/L (21-32); CHLORIDE 97 mmol/L (98-107); MAGNESIUM 1.7 mg/dL (1.8-2.4); PHOSPHOROUS 3.2 mg/dL (2.5-4.9); POTASSIUM 4.4 mmol/L (3.5-5.1); SODIUM SERUM 134 mmol/L (136-145); UREA NITROGEN, BLOOD 21 mg/dL (7-18)
[2025-01-12 16:08] LABS: GLUCOSE 523 mg/dL (74-106)
[2025-01-12] MEDS: PANTOPRAZOLE SODIUM 40 MG TABLET.DR PO SCH (16:18)
[2025-01-12] MEDS ORDERED: INSULIN REGULAR, HUMAN 300 UNITS/3 ML VIAL SQ PRN (16:30)
[2025-01-12] MEDS ORDERED: DEXTROSE 50% 50 ML DISP.SYRIN IV PRN (16:30)
[2025-01-12] MEDS: BLOOD SUGAR DIAGNOSTIC 1 EACH STRIP VI SCH (16:30)
[2025-01-12] MEDS: INSULIN REGULAR, HUMAN 1000 UNIT/10 ML VIAL SQ PRN (16:31)
[2025-01-12 16:51] LABS: LYMPHOCYTES % (MANUAL) 9 % (20-40); MONOCYTES % (MANUAL) 2 % (2-10); NEUTROPHILS % (MANUAL) 89 % (42-75); PLATELET ESTIMATE MARKED INCREASED
[2025-01-12 16:52] LABS: ANISOCYTOSIS 1+
[2025-01-12] MEDS ORDERED: INSULIN GLARGINE,HUM 300 UNITS/3 ML CARTRIDGE SQ SCH (21:00)
== END 2025-01-12 18:51 | DRG 193 ==
LOC: ER 17:00 → TELE3 21:34 → MEDSURG3 01-12 11:05
PROVIDERS: ADMIT Nurse Practitioner Family; ATTEND Nurse Practitioner Family
PROC: 0DB68ZX Excision of Stomach, Via Natural or Artificial Opening Endoscopic, Diagnostic (ICD-10-PCS; principal; 2025-01-11 12:00)
DX: J15.9 Unspecified bacterial pneumonia (principal); I85.01 Esophageal varices with bleeding; J96.01 Acute respiratory failure with hypoxia; L97.321 Non-pressure chronic ulcer of left ankle limited to breakdown of skin; J44.1 Chronic obstructive pulmonary disease with (acute) exacerbation; J44.0 Chronic obstructive pulmonary disease with (acute) lower respiratory infection; I85.00 Esophageal varices without bleeding; E44.1 Mild protein-calorie malnutrition; E11.622 Type 2 diabetes mellitus with other skin ulcer; Z88.1 Allergy status to other antibiotic agents; Z88.0 Allergy status to penicillin; D69.59 Other secondary thrombocytopenia; G89.4 Chronic pain syndrome; J43.9 Emphysema, unspecified; I86.4 Gastric varices; K29.80 Duodenitis without bleeding; B19.20 Unspecified viral hepatitis C without hepatic coma; K21.9 Gastro-esophageal reflux disease without esophagitis; L84 Corns and callosities; L89.150 Pressure ulcer of sacral region, unstageable; E11.43 Type 2 diabetes mellitus with diabetic autonomic (poly)neuropathy; K31.84 Gastroparesis; E11.41 Type 2 diabetes mellitus with diabetic mononeuropathy; E88.09 Other disorders of plasma-protein metabolism, not elsewhere classified; F41.9 Anxiety disorder, unspecified; G47.00 Insomnia, unspecified; I11.0 Hypertensive heart disease with heart failure; I50.9 Heart failure, unspecified; E78.5 Hyperlipidemia, unspecified; M77.30 Calcaneal spur, unspecified foot; N40.0 Benign prostatic hyperplasia without lower urinary tract symptoms; Z79.51 Long term (current) use of inhaled steroids; Z79.84 Long term (current) use of oral hypoglycemic drugs; Z85.07 Personal history of malignant neoplasm of pancreas; Z96.643 Presence of artificial hip joint, bilateral; Z96.653 Presence of artificial knee joint, bilateral; Z79.899 Other long term (current) drug therapy
CPT/HCPCS: 36415; 36600; 71045; 71260; 73600; 73700; 82378; 82746; 82784; 83605; 83735; 84100; 84155; 84165; 84443; 84484; 85018; 85025; 85610; 85730; 86301; 86334; 86704; 86705; 86706; 86803; 86850; 86900; 86901; 87040; 87086; 87340; 87806; 94640; 94664; 94760; A4606; A4663; A6209; G0378; J0456; J0696; J1100; J1650; J1815; J2250; J2270; J2405; J2470; J2919; J3490; J3590; J7040; J7050; Q0144; Q9967